=== PATIENT | female | born 1955 | race Caucasian/White ===

== ENCOUNTER 2025-01-23 05:27 | Observation (INO) ==
--- NOTE | 2024-12-24 10:44 | PAT Medication Instructions ---
Medication Instructions Date of Service December 24, 2024 Home Medications Lactobacil.acidophilus-Bifido.animalis 5 billion cell sprinkle capsule (Probiotic) 1 cap PO DAILY atorvastatin 40 mg tablet 40 mg PO QAM biotin 1,000 mcg chewable tablet 1,000 mcg PO DAILY buspirone 5 mg tablet 5 mg PO BID cholecalciferol (vitamin D3) 25 mcg (1,000 unit) capsule (Vitamin D3) 25 mcg PO DAILY cyanocobalamin (vitamin B-12) 2,500 mcg tablet 2,500 mcg PO DAILY famotidine 20 mg tablet 20 mg PO HS metformin 500 mg tablet 500 mg PO BID ltosiafzcovt-ujsqsuqx-erhgnye-folic acid 400 mcg-vit K1 20 mcg tablet 1 tab PO DAILY DO NOT take the morning of surgery Lactobacil.acidophilus-Bifido.animalis 5 billion cell sprinkle capsule (Probiotic) 1 cap PO DAILY biotin 1,000 mcg chewable tablet 1,000 mcg PO DAILY cholecalciferol (vitamin D3) 25 mcg (1,000 unit) capsule (Vitamin D3) 25 mcg PO DAILY cyanocobalamin (vitamin B-12) 2,500 mcg tablet 2,500 mcg PO DAILY metformin 500 mg tablet 500 mg PO BID ztfvtznkdtsc-cauzoine-ksmzgbd-folic acid 400 mcg-vit K1 20 mcg tablet 1 tab PO DAILY Take morning of surgery With a small sip of water, OTHERWISE NOTHING TO EAT OR DRINK AFTER MIDNIGHT: atorvastatin 40 mg tablet 40 mg PO QAM buspirone 5 mg tablet 5 mg PO BID Take evening before surgery buspirone 5 mg tablet 5 mg PO BID famotidine 20 mg tablet 20 mg PO HS metformin 500 mg tablet 500 mg PO BID Other Notes If you have any questions please call us at [phone] or [phone] or [phone] or [phone]
--- NOTE | 2024-12-26 10:31 | Anesthesiology Consultation ---
Date of Service December 26, 2024 Assessment & Plan (1) Encounter for pre-operative examination: - Check BSG DOS - Infectious disease screening: Per assessment on 12/26/24- No known recent infectious disease contacts or current infectious disease symptoms. - Outpatient joint assessment: Pt currently scheduled for inpatient pathway. If surgeon requests review for outpatient joint pathway, patient is not recommended candidate for outpatient joint program from anesthesia standpoint based on available information. - Cardiology visit (10/03/24): "SVT.. 7 beats on zio patch. Significant artifact. Short-lived.. Joint decision made to hold off on medication at this time.. Encouraged patient to stay hydrated.. Decrease caffeine intake and stress levels.. Encouraged to reach out with new/worsening symptoms in future.. Atypical chest pain.. DSE negative for ischemia. Noncardiac in nature. Continue with endoscopy as planned.. If patient would need ischemic work-up in the fu ture, recommend alternative testing with nuclear stress test as DSE not well tolerated with adverse side effects and ectopy.. Follow up PRN or if symptoms worsen/fail to improve." - Patient acceptable risk for surgery pending surgeon-ordered PCP preop evaluation ([facility] [place], appt 01/09). Chart Review Chart Review: Patient seen in Pre Admission Testing Teaching & Discussion Pre-Anesthesia Teaching/Discussion Notes: Instructed NPO after midnight before surgery,except medications with 15 cc of water. Medication instructions provided according to the PAT guidelines. History Surgery Operation Date: 01/23/25 07:15 Proposed Procedures p Left Total Knee Arthroplasty - Ham Sullivan MD Height/Weight Height: 5 ft 10 in Weight: 127 kg Allergies Allergy/AdvReac Type Severity Reaction Status Date / Time codeine AdvReac Intermediate "[place] like Verified 12/26/24 08:56 was passing out" Medications Home Medications Medication Instructions Recorded Confirmed Last Taken Lactobacil.acidophilus-Bifido.animalis 1 cap PO DAILY 12/24/24 12/24/24 Unknown 5 billion cell sprinkle capsule (Probiotic) atorvastatin 40 mg tablet 40 mg PO QAM 12/24/24 12/24/24 Unknown biotin 1,000 mcg chewable tablet 1,000 mcg PO DAILY 12/24/24 12/24/24 Unknown buspirone 5 mg tablet 5 mg PO BID 12/24/24 12/24/24 Unknown cholecalciferol (vitamin D3) 25 25 mcg PO DAILY 12/24/24 12/24/24 Unknown mcg (1,000 unit) capsule (Vitamin D3) cyanocobalamin (vitamin B-12) 2,500 mcg PO DAILY 12/24/24 12/24/24 Unknown 2,500 mcg tablet famotidine 20 mg tablet 20 mg PO HS 12/24/24 12/24/24 Unknown metformin 500 mg tablet 500 mg PO BID 12/24/24 12/24/24 Unknown oqqslvsbchxn-uzdduzyq-nxvvmvd-folic 1 tab PO DAILY 12/24/24 12/24/24 Unknown acid 400 mcg-vit K1 20 mcg tablet Past Medical History Medical History Anxiety GERD (gastroesophageal reflux disease) Hiatal hernia Hyperlipidemia Prediabetes Taking Metformin Exercise / Class Metabolic Activity II 4-5 Yardwork/Stairs/Walk up hill (one FS: No CP, no SOB) Past Family History Family History Sister History of postoperative nausea and vomiting Father Diabetes Past Surgical History Surgical History History of arthroscopy right knee History of cholecystectomy History of colonoscopy History of esophagogastroduodenoscopy (EGD) History of hysterectomy History of postoperative nausea and vomiting History of tonsillectomy History of tooth extraction Hx of foot surgery B/L bone spurs Past Anesthesia History No Hx of Anesthesia Complications and No Family Hx of Anesthesia Complications History of PONV History of PONV and Hx of Motion Sickness Social History Smoking Status: Never smoker Do You Dip or Chew Tobacco: No Hx Alcohol Use: No Hx Substance Use: No substance use type: does not use Review of Systems Patient denies chest pain, shortness of breath, dyspnea on exertion, fever, chills, cough, wheezing, palpitations. Physical Exam Vital Signs BP 125/72 P 62 TEMP 98.2 SP02 96%RA RESP 18 Physical Full cervical extension range of motion. Full TMJ range of motion. TMD > 3.5 finger breaths Mallampati Score I Dentition: several missing (molars), upper partial Lungs: clear throughout to auscultation Cardiac: regular rate and rhythm, no murmurs noted Spine: normal Carotid arteries: negative bruit Extremities: no LLE edema, right ankle brace on Lab Results Anesthesia Preop Results Results Anesthesia Widget: WBC 8.97 K/ul (4.8-10.8) 12/26/24 Hgb 13.4 g/dl (12.0-16.0) 12/26/24 Hct 40.6 % (37.0-47.0) 12/26/24 Plt 351 K/uL (130-400) 12/26/24 Na 141 mmol/L (136-145) 12/26/24 K 4.2 mmol/L (3.5-5.1) 12/26/24 Cl 105 mmol/L (98-107) 12/26/24 CO2 30 mmol/L (21-32) 12/26/24 BUN 18 mg/dl (6-23) 12/26/24 Creat 0.62 mg/dl (0.6-1.2) 12/26/24 Glucose Level 93 mg/dl (70-99(Fasting)) 12/26/24 PT 11.0 Seconds (9.0-12.0) 12/26/24 PTT 28 Seconds (21-31) 12/26/24 INR 1.0 (0.9-1.1) 12/26/24 HA1c 5.9 % (4.5-5.6) H 12/26/24 Urine Color Dark Yellow 12/26/24 Urine Appearance Clear (Clear) 12/26/24 Urine pH 7.0 (4.5-7.5) 12/26/24 Urine Specific [place] 1.015 (1.000-1.030) 12/26/24 Urine Protein Negative (Negative) 12/26/24 Urine Glucose (UA) Negative (Negative) 12/26/24 Urine Ketones Trace (Negative) H 12/26/24 Urine Blood Negative (Negative) 12/26/24 Urine Nitrite Negative (Negative) 12/26/24 Urine Bilirubin Negative (Negative) 12/26/24 Urine Urobilinogen Negative (Negative) 12/26/24 Urine Leukocyte Esterase 1+ (Negative) H 12/26/24 Urine WBC (Auto) 0-5 /hpf (0-5) 12/26/24 Urine RBC (Auto) 0-2 /hpf (0-2) 12/26/24 Urine Hyaline Casts (Auto) 0-2 /lpf (0-2) 12/26/24 Urine Epithelial Cells (Auto) 0-2 /hpf (0-2) 12/26/24 Urine Bacteria (Auto) None Seen (None Seen) 12/26/24 Blood Type O Positive 12/26/24 Antibody Screen NEGATIVE 12/26/24 Testing Electrocardiogram Date: 08/16/24 NSR at 64bpm. LAFB. LVH with secondary QRS widening. Chest X-Ray Date: 12/26/24 Findings: + NAD Stress Test Date: 09/27/24 Type: DSE Stress echo negative for inducible ischemia. Atypical central chest pain 12/03 was noted with stress which resolved in recovery. No significant ST changes noted during stress. Irregular rhythm and ectopy noted during medication infusion with heart rate fluctuation. LVEF 55-59%. Mildly enlarged proximal ascending thoracic aorta, 4.0 cm in diameter. Per DSE, recommend different stress test in the future when necessary as patient did not tolerate dobutamine well noting nausea, chest pain, and irregular heart rhythm. 14 day night monitor Date: 09/06/24-09/20/24 Preliminary report:Minimum HR 55 bpm. Maximum HR 106 bpm average HR 72 bpm. Predominant underlying rhythm was sinus rhythm. First-degree AV block was present. 1 run of SVT. Isolated SVE's/SVE couplets/SVE triplets/isolated VE's were rare. No A-fib.
--- NOTE | 2025-01-21 20:46 | History & Physical Report ---
Date of Service January 21, 2025 Assessment & Plan (1) Bilateral primary osteoarthritis of knee: Plan: Current plan is to proceed with a left knee replacement on the worst knee. May require stemmed implant and or constrained polyethylene implant for stability purposes due to chronic MCL laxity and bone loss lateral compartment. History of Present Illness Chief Complaint: Chronic left knee pain Primary Care Provider: NO PCP 69-year-old female with chronic bilateral knee pain with severe end-stage osteoarthritis presents for left knee replacement Patient denies headaches, sweats, fevers, chills, double vision, blurred vision, cough, sore throat, dysphagia, chest pain, sob at rest has some running short distance, wheezing, n/v/d/c, numbness, tingling, fatigue, urinary symptoms. ROS positive for acid reflux hiatal hernia, severe nausea and vomiting with anesthesia and family member having problem with anesthesia Allergies Allergy/AdvReac Type Severity Reaction Status Date / Time codeine AdvReac Intermediate "[place] like Verified 12/26/24 08:56 was passing out" Home Medications Medication Instructions Recorded Confirmed Type Lactobacil.acidophilus-Bifido.animalis 1 cap PO DAILY 12/24/24 12/24/24 History 5 billion cell sprinkle capsule (Probiotic) atorvastatin 40 mg tablet 40 mg PO QAM 12/24/24 12/24/24 History biotin 1,000 mcg chewable tablet 1,000 mcg PO DAILY 12/24/24 12/24/24 History buspirone 5 mg tablet 5 mg PO BID 12/24/24 12/24/24 History cholecalciferol (vitamin D3) 25 25 mcg PO DAILY 12/24/24 12/24/24 History mcg (1,000 unit) capsule (Vitamin D3) cyanocobalamin (vitamin B-12) 2,500 mcg PO DAILY 12/24/24 12/24/24 History 2,500 mcg tablet famotidine 20 mg tablet 20 mg PO HS 12/24/24 12/24/24 History metformin 500 mg tablet 500 mg PO BID 12/24/24 12/24/24 History yabkeurtjjgy-hsmkgadn-zejswjh-folic 1 tab PO DAILY 12/24/24 12/24/24 History acid 400 mcg-vit K1 20 mcg tablet Past Med/Surg History Problem List (Updated 01/21/25 @ 20:45 by Ham Sullivan MD) Bilateral primary osteoarthritis of knee Encounter for pre-operative examination Medical History GERD (gastroesophageal reflux disease) Hiatal hernia Prediabetes Taking Metformin Anxiety Hyperlipidemia Surgical History History of postoperative nausea and vomiting History of arthroscopy right knee Hx of foot surgery B/L bone spurs History of cholecystectomy History of colonoscopy History of esophagogastroduodenoscopy (EGD) History of hysterectomy History of tooth extraction History of tonsillectomy Family History Sister History of postoperative nausea and vomiting Father Diabetes Social History Smoking Status: Never smoker Second Hand Exposure: No; Do You Dip or Chew Tobacco: No; Tobacco Cessation Education Requested by Patient: No Hx Alcohol Use: No Hx Substance Use: No Preferred Language: Wolof Communication Ability: Effective Admission Liaison Required: No Beliefs That Will Affect Care: None Current Living Situation: Spouse Other Information That Helps Us Care for You: No Feels Safe at Home: Yes Safety Concerns: Feels Safe At This Time Assistive Devices: Glasses Review of Systems All systems reviewed & are unremarkable except as noted in HPI & below Physical Exam Constitutional: WD/WN, vitals as above Respiratory: normal respiratory effort; no respiratory distress Cardiovascular: Rate/Rhythm: regular rate and regular rhythm Musculoskeletal: Knee exam with bilateral valgus knees left greater than right with lateral compartment crepitation lateral joint line tenderness. Patient has pain with Cornelia tests directly either medial or lateral bilaterally and has some moderate laxity of the left knee with valgus stress and mild on the right with valgus stress. Both knees are painful with range of motion 0 to 120 degrees on the right and 0-1 15 on the left. Distal circulation sensorimotor exam otherwise intact and normal. Skin: no rashes, warm and dry Neurologic: normal touch/pain/proprioception Psychiatric: A+Ox3, euthymic affect Results & Data Diagnostic Findings Bilateral knees are valgus [id number] in the lateral compartment with hypoplastic lateral femoral condyles with bone loss over time. Left knee has larger osteophytes subchondral sclerosis hypoplastic lateral femoral condyle bone loss than noted on on the right.
[2025-01-23] MEDS: LR 500ML BOLUS, THEN 15ML/HR IV SCH (06:18)
[2025-01-23] MEDS: CeleBREX 200 MG CAP PO SCH (06:18)
[2025-01-23] MEDS: ACETAMINOPHEN 500 MG TAB PO SCH ×2 (06:18→14:01)
[2025-01-23] MEDS: FAMOTIDINE 20 MG TAB PO SCH ×2 (06:19→21:20)
[2025-01-23] MEDS: METOCLOPRAMIDE HCL 10 MG TABLET PO SCH (06:19)
[2025-01-23] MEDS: GABAPENTIN 300 MG CAP PO SCH (06:19)
[2025-01-23] MEDS: LR 60ML/HR IV SCH (06:19)
[2025-01-23] MEDS ORDERED: BUPIVACAINE 0.25% PF 30 ML VIAL ONE (06:21)
[2025-01-23] MEDS ORDERED: BUPIVACAINE 0.5 % 5 MG/1 ML PF 10ML VIAL ONE (06:21)
[2025-01-23] MEDS ORDERED: PROPOFOL IV EMULSION 10 MG/ML 100 ML VIAL IV ONE ×2 (06:41→08:59)
[2025-01-23] MEDS ORDERED: MIDAZOLAM HCL 1 MG/ML 2ML VIAL ONE (06:41)
[2025-01-23] MEDS ORDERED: ATROPINE SULFATE 0.1 MG/ML 10ML SYR IV PRN (06:47)
[2025-01-23] MEDS ORDERED: ONDANSETRON INJ 2 MG/ML 2 ML VIAL IV PRN (06:47)
[2025-01-23] MEDS ORDERED: ePHEDrine sulfate 50 MG/ML AMP IV PRN (06:47)
[2025-01-23] MEDS ORDERED: fentaNYL citrate PF 100 MCG/2 ML VIAL IV PRN (06:47)
[2025-01-23] MEDS ORDERED: PROMETHAZINE HCL 6.25 MG in SODIUM CHLORIDE 0.9% 50 ML IV PRN (06:47)
--- OUTSIDE RECORDS SUMMARY | 2025-01-23 06:51 | External Medical Summary | Summary of Care ---
Author Name Unknown Organization [facility] Address [address] [place] [facility] [place] [address] Phone [phone] Care Team Providers Care Lvn Name Role Phone Maclolm Osman DO Primary Care Provider [phone] Reason for Visit * Reason Onset Date Comments Test Results 01/11/2025 Encounter Details Date Type Department Care Team (Late st Contact Info) Description 01/11/[facility] [address] [place] [address] Malcolm Osman DO [address] [place] [address] Test Results Allergies Active Allergy Reactions Criticality Noted Date Comments No Known Drug Allergy 06/11/2003 documented as of this encounter (statuses as of 01/14/2025) Medications Vitamin D3 50 MCG (1999) Oral Capsule Take 1 Capsule by mouth in the morning. Active Biotin 1000 MCG Oral Tablet Take 1 Tablet by mouth in the morning. Active Multivitamin-Mine rals Oral Tablet Take 2 Tablets by mouth in the morning. Active Fluticasone Propionate 50 MCG/ACT Nasal Suspension (Flonase)Indicati ons:Chronic pansinusitis Administer 2 Sprays into each nostril in the morning. Active busPIRone HCl 5 MG Oral Tablet (Buspar) Take 1 Tablet by mouth in the morning and 1 Tablet before bedtime. 180 Tablet 1 11/28/2024 11:55 AM EST 4 Active Famotidine 20 MG Oral Tablet (Pepcid)Indicatio ns:Gastroesophage al reflux disease without esophagitis Take 1 Tablet by mouth in the morning and 1 Tablet before bedtime. 5 Active documented as of this encounter (statuses as of 01/14/2025) Active Problems Problem Noted Date Diagnosed Date Primary osteoarthritis of left knee 01/09/2025 Assessment & Plan (01/11/2025 12:58 PM EDT): Follow with orthopedic Degeneration of intervertebr al disc of lumbar region with discogenic back pain 11/20/2024 Assessment & Plan (01/11/2025 12:58 PM EDT): Stable Modified home therapeutic exercise Avoid strenuous activities, no heavy lifting Warm compresses four times daily affected area Caregiver burden 11/20/2024 History of hyperplastic polyp of colon 4 Overview (09/05/2024): 2010 Colonoscopy Chronic pansinusitis 08/16/2024 Chronic idiopathic constipation 08/16/2024 Primary osteoarthritis of both knees 08/16/2024 Bilateral carpal tunnel syndrome 08/16/2024 Class 3 severe obesity due t o excess calories with serious comorbidity and body mass index (BMI) of 40.0 to 44.9 in adult 08/16/2024 Diverticulosis of large intestine without hemorr nathalia 08/16/2024 Positive colorectal cancer screening using Colog uard test 08/16/2024 Prediabetes 11/07/2023 Overview: Per Prediabetes protocol Assessment & Plan (01/11/2025 12:58 PM EDT): Stable Continue present medication Metformin ER 500 mg 2 tabs once daily Continue reduced caloric intake diabetic diet and exercise Foot pain 12/15/2015 Other seborrheic keratosis 03/16/2013 AK (actinic keratosis) 03/16/2013 Zhu angioma 03/16/2013 Personal history of malignant neoplasm of skin 0 03/16/2011 Overview (03/16/2011): History pigmented Basal Cell Carcinoma R upper chest/173.5 Special screening for osteoporosis 07/27/2007 Overview (07/27/2007): 12/28. Repeat in 5 year Abnormal thyroid function test 05/15/2007 Overview (05/15/2007): [place] TSH. Positive antibodies 05/02 Esophageal reflux 02/15/2007 Overview (03/19/2009): Ppi prn Assessment & Plan (01/11/2025 12:58 PM EDT): Stable Continue present medication [place] high-fiber diet Orders: Famotidine 20 MG Oral Tablet (Pepcid); Take 1 Tablet by mouth in the morning and 1 Tablet before bedtime. Dyslipidemia, goal LDL below 70 04/27/2006 Impaired fasting glucose 04/27/2006 Menopause 04/25/2006 Overview (04/25/2006): DEXA normal 08/29, recheck 5 years LOC PRIM OSTEOART-SHLDER 10/19/2004 Overview (10/19/2004): also of cspine FAM HX-DIABETES MELLITUS(aka FAMILY) 09/07/2004 FAM HX-LYMPH NEOPLAS NEC(aka FAMILY) 09/07/2004 FAM HX-NEUROLOG DIS NEC(aka FAMILY) 09/07/2004 Overview (09/07/2004): dementia documented as of this encounter (statuses as of 01/14/2025) Resolved Problems Problem Noted Date Diagnosed Date Resolved Date Benign neoplasm of colon 03/15/201107/2024 Overview (09/05/2024): 2010 Colonoscopy hyperplastic 03/06. Repeat 10 yr Body mass index (BMI) of 40.0-44.9 in adult 12/23/2009 09/10/2024 Overview (01/06/2016): Per Obesity Taxonomy ICD-10 update of inactive term BMI OVER 40 10/19/2004 12/23/2009 Overview (12/23/2009): Per Obesity Taxonomy Actinic keratosis 10/19/2004 07/28/2007 Uterine leiomyoma 07/23/2003 09/07/2004 Chronic rhinitis 09/07/2004 Other disorder of menstruati on and other abnormal bleeding from female genital tract 09/07/2004 documented as of this encounter (statuses as of 01/14/2025) Immunizations Name Administration Dates Next Due COVID-19 mRNA, LNP-s, No Pre serve, 2-Dose Series (Pfizer) 12/03/2020,11/05/2020 Pneumococcal Conjugate Vacci ne, 20-valent ([id number]) 10/27/2023 Rabies Vaccine (Rabavert) 05/18/2016,,05/07/2016,2015 Seasonal Influenza, High Dos e, Trivalent, PF, IM (Fluzone HD) 08/16/2024 Seasonal Influenza, Quadriva lent Hd (Fluzone Hd) 10/27/2023 TDAP (age 10 and older)(Boostrix) 05/02/2016 TDAP, Age 7 and older, IM (Adacel) 07/28/2007 Zoster Vaccine Recombinant (Shingrix) 11/20/2024 documented as of this encounter Social History Tobacco Use Types Packs/Day Years Used Date Smoking Tobacco: Never Passive Smoke Exposure: Never Smokeless Tobacco: Never Alcohol Use Standard Drinks/Week Comments No 0 (1 standard drink = 0.6 oz pur e alcohol) PHQ-2 Answer Date Recorded PHQ Adult Total Score 1 11/20/2024 Hunger Vital Sign Answer Date Recorded Within the past 12 months, y ou worried that your food would run out before you got the money to buy more. Never true 08/14/20 24 Within the past 12 months, t he food you bought just didn't last and you didn't have money to get more. Never true 08/14/2024 Childcare Answer Date Recorded Do you feel overwhelmed with taking care of a child, family member or friend? No 08/14/2024 Does your family need help f inding childcare? (Household - for ages 0-17 years) Not on file 08/14/2024 Clothing Answer Date Recorded Have you been unable to get clothing when it was really needed? No 08/14/2024 Is your family able to get c lothes or diapers when needed? (Household - for ages 0-17 years) Not on file 08/14/2024 Personal Safety Answer Date Recorded Do you feel unsafe or have concerns for your saf ety? No 08/14/2024 Do you have concerns for you r family's safety? (Household - for ages 0-17 years) Not on file 08/14/2024 Utilities Answer Date Recorded Do you have trouble paying y our heating, water, or electric bill? No 08/14/2024 Is your family able to pay t he heat, water, or electric bill? (Household - for ages 0-17 years) Not on file 08/14/2024 Does your family have access to good internet? (Household - for ages 0-17 years) Not on file 08/14/2024 Employment Status Answer Date Recorded Are you unemployed or without regular income? No 08/14/2024 Does the household have a [facility] source of income? (Household - for ages 0-17 years) Not on file 08/14/2024 Social Connections Answer Date Recorded How often do you feel lonely or isolated from th ose around you? Never 08/14/2024 Financial Resource Strain Answer Date R ecorded Do you have any trouble payi ng for your medications, or do you think you might in the future? No 08/14/2024 Does your family have troubl e paying for medicine? (Household - for ages 0-17 years) Not on file 08/14/2024 Transportation Needs Answer Date Record ed Do you have trouble getting a ride to medical visits or work? (Adult - for ages 18 years and over) Not on file 08/14/2024 Does your family have a hard time getting a ride to doctors visits? (Household - for ages 0-17 years) Not on file 08/14/2024 Has lack of transportation k ept you from medical appointments, meetings, work, or from getting things needed for daily living? Check all that apply. No 08/14/2024 Do you (or your family) have trouble finding or paying for a ride (transportation)? (Household - for ages 0-17 years) Not on file 08/14/2024 Housing Stability Answer Date Recorded Do you currently live in a s helter or have no steady place to sleep at night? No 08/14/2024 Do you think you are at risk of becoming homeless? (Adult - for ages 18 years and over) Not on file 08/14/2024 Does your family worry about paying for your home or becoming homeless? (Household - for ages 0-17 years) Not on file 1 10/14/2023 Are you homeless or worried that you might be in the future? No 08/14/2024 Are you (or your family) kashif eless or worried that you might be in the future? (Household - for ages 0-17 years) Not on file Food Insecurity Answer Date Recorded Do you need food for this week? No 08/14/2024 Are you able to get enough f ood for your family? (Household - for ages 0-17 years) Not on file 08/14/2024 Does your family need food t his week? (Household - for ages 0-17 years) Not on file 08/14/2024 Do you always have enough fo od for your family? (Household - for ages 0-17 years) Not on file 08/14/2024 Food Insecurity Answer Date Recorded Within the past 12 months, y ou worried that your food would run out before you got the money to buy more. Never true 08/14/20 24 Within the past 12 months, t he food you bought just didn't last and you didn't have money to get more. Never true 08/14/2024 Do you need food for this week? No 08/14/2024 Comments No Sex and Gender Information Value Date Recorded Sex Assigned at Female 05/07/2022 7:39 PM EDT Legal Sex Female 5:53 AM EST Gender Identity Female 05/07/2022 7:39 PM EDT Sexual Orientation Straight 05/07/2022 7: 39 PM EDT Occupation Industry Job Start Date Job End Date teacher Not on file Not on file Not on file documented as of this encounter Miscellaneous Notes * Telephone Encounter - Lakesha Arreguin LPN - 01/14/2025 8:48 AM EDT Faxed to [facility] and [facility]. * Telephone Encounter - Malcolm Osman DO - 01/11/2025 5:48 PM EDT Preop lab studies are normal. Please fax to [facility] orthopedic documented in this encounter Plan of Treatment Upcoming Encounters Date Type Department Care Team (Late st Contact Info) Description 02/20/2025 11:20 AM EDT Office Visit Family Practice [address] [place] [address] [address] [place] [address] Malcolm Osman DO [address] [place] [phone] 03/11/2025 1:00 PM EDT Nutrition Services Nutrition Services [address] [place] [address] [address] [facility] [place], [place] [id number] Molly Ham, KAINN 30 [facility] 11 [place] [address] 04/22/2025 9:20 AM EDT Office Visit Dermatology, [facility] [address] [facility] [address] [place] [address] Janae Joseph PA-C 27 [place] [phone] 06/17/2025 4:15 PM EDT Appointment Radiology, [address] [place] [phone] Health Maintenance Due Date Last Done Comments Sigmoidoscopy 2002 Fecal Occult Blood Test 08/11/2008 08/11/2007, 09/17 Adult Wellness Visit 2023 COVID-19 Vaccine (3 - 2023- season) 2024 12/03/2020, 11/05/2020 Zoster Vaccines (2 of 2) 01/15/2025 11/20/2024 Mammogram 06/12/2025 06/12/2024, 05/0 04/2023, 12/07/2021, Additional history exists HbA1c 08/29/2025 08/29/2024, 02/0 09/2023, 06/20/2012, Additional history exists Depression Screening 11/20/2025 11/20/2024 DTap/Tdap Vaccines (3 - Td or Tdap) 05/02/2026 05/02/2016, 07/28/2007 Cologuard 11/17/2026 11/17/2023, 10/27, 11/07/2023 Lipid Panel 08/29/2029 08/29/2024, 020 09/2023, 12/14/2022, Additional history exists DXA Scan 11/18/2033 11/18/2023 Colonoscopy 01/09/2034 01/10/2024, 12/25, 03/04/2011 Colorectal Cancer Screening 01/09/2034 Hepatitis C Screening Completed 05/15/2007 Pneumococcal Vaccine: 50+ Years Completed 10/27/2023 Influenza Vaccine (FLU shot) Completed 08/16/2024, 10/27/2023 HPV (Gardasil) Vaccine Aged Out No lo nger eligible based on patient's age to complete this topic Hepatitis B Vaccine Aged Out No longe r eligible based on patient's age to complete this topic MENINGOCOCCAL (MENACTRA/MENVEO) Aged Out No longer eligible based on patient's age to complete this topic Meningitis B Vaccine (Bexsero/Trumemba) Aged Out No longer eligible based on patient's age to complete this topic documented as of this encounter Medical Devices Not on filedocumented as of this encounter Advance Directives Documents on File Type Date Recorded Patient Diet Kitchen Cook Expl anation POLST 08/17/2024 signed on 08/16 Care Teams Lvn Relationship Specialty Start Date End Date Malcolm Osman DO [address] [place] [address] PCP - General Family Medicine 08/16/24 documented as of this encounter
--- OUTSIDE RECORDS SUMMARY | 2025-01-23 06:51 | External Medical Summary | Summary of Care ---
Author Name Unknown Organization [facility] [address] [facility] [address] Phone [phone] Care Team Providers Care Fire Extinguisher Repairer Name Role Phone Malcolm Osman DO Primary Care Provider [phone] Reason for Visit * Reason Onset Date Comments Other 01/09/2025 Encounter Details Date Type Department Care Team (Late st Contact Info) Description 01/09/2025 Telephone Family Practice 65 [facility] [place] [address] [place] [address] Malcolm Osman DO [address] [place] [address] Other Allergies Active Allergy Reactions Criticality Noted Date Comments No Known Drug Allergy 06/11/2003 documented as of this encounter (statuses as of 01/11/2025) Medications Vitamin D3 50 MCG (1999) Oral [...] as of this encounter (statuses as of 01/11/2025) Active Problems Problem Noted Date Diagnosed Date [...] 12:58 PM EDT): Stable Continue present medication [place] high-fiber diet Orders: Famotidine 20 MG Oral [...] as of this encounter (statuses as of 01/11/2025) Resolved Problems Problem Noted Date Diagnosed Date [...] as of this encounter (statuses as of 01/11/2025) Immunizations Name Administration Dates Next Due COVID-19 mRNA, LNP-s, No Pre serve, 2-Dose Series (Pfizer) 12/03/2020,11/05/2020 Pneumococcal Conjugate Vacci ne, 20-valent ([id number]) 10/27/2023 Rabies Vaccine (Rabavert) 05/18/2016,,05/07/2016,2015 Seasonal Influenza, [...] No 08/14/2024 Does the household have a [facility] health systemr source of income? (Household - for ages [...] encounter Miscellaneous Notes * Telephone Encounter - Diana Oneill CCMA - 01/11/2025 2:37 PM EDT Clearance faxed to [facility] and [facility] for preop * Telephone Encounter - Malcolm Omsan DO - 01/11/2025 12:59 PM EDT Please see note and fax per request * Telephone Encounter - Diana Oneill CCMA - 01/09/2025 2:11 PM EDT Please complete note so it can be faxed to [facility] and [facility] for her surgery documented in this encounter Plan of Treatment Upcoming Encounters Date Type Department Care Team (Late st Contact Info) Description 02/20/2025 11:20 AM EDT Office Visit Family Practice 65 [facility] [address] [place] [address] Malcolm Osman DO [address] [place] [address] 03/11/2025 1:00 PM EDT Nutrition Services Nutrition Services 65 [facility] [address] [place] [address] Molly Ham, KAINN 30 [facility] [place] 11 [place] [address] 04/22/2025 9:20 AM EDT Office Visit Dermatology, [facility] Parker [address] [place] [address] [place] [address] Janae Joseph PA-C [address] [place] [address] 06/17/2025 4:15 PM EDT Appointment Radiology, [facility] [address] [place] [phone] Health Maintenance Due Date Last Done Comments Sigmoidoscopy 2002 Fecal Occult Blood Test 08/11/2008 08/11/2007, 09/17 Adult Wellness Visit 2023 COVID-19 Vaccine (3 - season) 2024 12/03/2020, 11/05/2020 Zoster Vaccines (2 of 2) 01/15/2025 11/20/2024 Mammogram 06/12/2025 06/12/2024, 05/0 04/2023, 12/07/2021, Additional history exists HbA1c 08/29/2025 08/29/2024, 020 09/2023, 06/20/2012, Additional history exists Depression Screening [...] Documents on File Type Date Recorded Patient Sawmill Manager Expl anation POLST 08/17/2024 signed on 08/16 Care Teams Fire Extinguisher Repairer Relationship Specialty Start Date End Date Malcolm Osman DO [address] [place] [address] PCP - General Family Medicine 08/16/24 documented as of this encounter
--- OUTSIDE RECORDS SUMMARY | 2025-01-23 06:51 | External Medical Summary | Summary of Care ---
Author Name Unknown Organization [facility] Address [address] [place] [facility] [place] [address] Phone [phone] Care Team Providers Care Respiratory Medicine Physician Name Role Phone Malcolm Osman DO Primary Care Provider [phone] Reason for Visit * Reason Onset Date Comments Test Results 01/11/2025 Encounter Details Date Type Department Care Team (Late st Contact Info) Description 01/11/20[facility] [address] [place] [address] Malcolm Osman DO [address] [place] [address] Test Results Allergies Active Allergy [...] 12:58 PM EDT): Stable Continue present medication [place] high-fiber diet Orders: Famotidine 20 MG Oral [...] (Pfizer) 12/03/2020,11/05/2020 Pneumococcal Conjugate Vacci ne, 20-valent ([id number]) 10/27/2023 Rabies Vaccine (Rabavert) 05/18/2016,,05/07/2016,2015 Seasonal Influenza, [...] No 08/14/2024 Does the household have a [facility] source of income? (Household - for [...] encounter Miscellaneous Notes * Telephone Encounter - Malcolm Osman DO - 01/11/2025 5:48 PM EDT Preop lab studies are normal. Please fax to [facility] orthopedic documented in this encounter Plan of Treatment Upcoming Encounters Date Type Department Care Team (Late st Contact Info) Description 02/20/2025 11:20 AM EDT Office Visit Family Practice 65 [facility] [address] [place] [place] [address] Malcolm Osman DO [address] [place] [address] 03/11/2025 1:00 PM EDT Nutrition Services Nutrition Services 65 [facility] [address] [place] [address] Molly Ham, RDN 30 [facility] 11 [place] [address] 04/22/2025 9:20 AM EDT Office Visit Dermatology, [facility] [address] [place] [address] [place] [address] Janae Joseph PA-C [address] [place] [address] 06/17/2025 4:15 PM EDT Appointment Radiology, [address] [place] [phone] Health Maintenance Due Date Last Done Comments Sigmoidoscopy 2002 Fecal Occult Blood Test 08/11/2008 08/11/2007, 09/17 Adult Wellness Visit 2023 COVID-19 Vaccine ( season) 2024 12/03/2020, 11/05/2020 Zoster Vaccines (2 [...] Documents on File Type Date Recorded Patient Wildlife Ecology Professor Expl anation POL 08/17/2024 signed on 08/16 Care Teams Respiratory Medicine Physician Relationship Specialty Start Date End Date Malcolm Osman DO [address] [place] [address] PCP - General Family Medicine 08/16/24 documented as of this encounter
--- OUTSIDE RECORDS SUMMARY | 2025-01-23 06:51 | External Medical Summary | Summary of Care ---
Author Name Unknown Organization [facility] Address [address] [place] [facility] [place] [place] [address] Phone [phone] Care Team Providers Care Coordinator Integrated Marketing Name Role Phone Malcolm Osman DO Primary Care Provider [phone] Reason for Visit * Reason Onset Date Comments Test Results 01/11/2025 Encounter Details Date Type Department Care Team (Late st Contact Info) Description 01/11/[facility] [address] [place] [address] Malcolm Osman DO [address] [place] [address] Test Results Allergies Active Allergy Reactions [...] 12:58 PM EDT): Stable Continue present medication [place] high-fiber diet Orders: Famotidine 20 MG Oral [...] (Pfizer) 12/03/2020,11/05/2020 Pneumococcal Conjugate Vacci ne, 20-valent ([id number]) 10/27/2023 Rabies Vaccine (Rabavert) 05/18/2016,,05/07/2016,2015 Seasonal Influenza, [...] No 08/14/2024 Does the household have a [facility] source [facility] income? (Household - for [...] lab studies are normal. Please fax to [facility] orthopedic documented in this encounter Plan of Treatment Upcoming Encounters Date Type Department Care Team (Late st Contact Info) Description 02/20/2025 11:20 AM EDT Office Visit Family Practice 65 [facility] [address] [place] [address] Malcolm Osman DO [address] [place] [address] 03/11/2025 1:00 PM EDT Nutrition Services Nutrition Services 65 [facility] [address] [place] [address] Molly Ham, RDN 30 [facility] 11 [place] [address] 04/22/2025 9:20 AM EDT Office Visit Dermatology, [facility] [address] [place] [address] [place] [address] Janae Joseph PA-C [address] [place] [address] 06/17/2025 4:15 PM EDT Appointment Radiology, [address] [place] [phone] Health Maintenance Due Date Last Done Comments [...] Documents on File Type Date Recorded Patient Fisher Swordfish Expl anation POL 08/17/2024 signed on 08/16 Care Teams Coordinator Integrated Marketing Relationship Specialty Start Date End Date Malcolm Osman DO [address] [place] [address] PCP - General Family Medicine 08/16/24 documented as of this encounter
--- OUTSIDE RECORDS SUMMARY | 2025-01-23 06:52 | External Medical Summary ---
Author Name Unknown Address Unknown Organization [id number]:[facility] [address] [facility] [place] [id number] Laboratory Report Ordering Provider Test Date Status DOUG GUILLERMO 01/09/2025 11:59:13 Final Observation Date Value Abnormality Reference (Units ) Status SYNC LEUKOCYTES IN BLOOD BY AUTOMATED COUNT 01/09/2025 11:59:13 10.06 4.00-10.80 (K/uL) Final Segs 01/09/2025 11:59:13 65.7 40.0-75.0 (%) Final Lymphs % 01/09/2025 11:59:13 23.6 18.0-42.0 (%) Final Monos 01/09/2025 11:59:13 8.5 1.0-11.0 (%) Final Eosinophils 01/09/2025 11:59:13 1.4 0.0-6.0 (%) Final Basos 01/09/2025 11:59:13 0.5 0.0-2.0 (%) Final Immature Granulocyte, Percent 01/09/2025 11:59:13 0.3 0.0-2.0 (%) Final Absolute Segs 01/09/2025 11:59:13 6.61 1.80-7.70 (K/uL) Final Lymphs, absolute 01/09/2025 11:59:13 2.37 1.00-4.80 (K/ul) Final Monos, Abs 01/09/2025 11:59:13 0.86 0.00-1.10 (K/uL) Final Eos, Abs 01/09/2025 11:59:13 0.14 0.00-0.70 (K/uL) Final Basos, Abs 01/09/2025 11:59:13 0.05 0.00-0.20 (K/uL) Final Immature Granulocytes, Number 01/09/2025 11:59:13 0.03 0.00-0.20 (K/uL) Final Performing Location LABORATORY [facility] - [facility] [place] [address]
--- OUTSIDE RECORDS SUMMARY | 2025-01-23 06:52 | External Medical Summary | Summary of Care ---
Author Name Unknown Organization [facility] Address [address] [place] [address] Phone [phone] Care Team Providers Care Devil Dog Name Role Phone Og Osmaninic Primary Care Provider [phone] Reason for Visit * Reason Comments Outpatient Testing Encounter Details Date Type Department Care Team (Late st Contact Info) Description 01/09/2025 12:00 PM EDT Laboratory Laboratory, [place] [address] [place] [phone] [place], [facility] [address] [place] [phone] Preop examination Allergies Active Allergy Reactions Criticality Noted Date Comments No Known Drug Allergy 06/11/2003 documented as of this encounter (statuses as of 01/09/2025) Medications Vitamin D3 50 MCG (1999 UT) Oral Capsule Take 1 Capsule by mouth in the morning. Active Biotin 1000 MCG Oral Tablet Take 1 Tablet by mouth in the morning. Active Multivitamin-Mine rals Oral Tablet Take 2 Tablets by mouth in the morning. Active Fluticasone Propionate 50 MCG/ACT Nasal Suspension (Flonase)Indicati ons:Chronic pansinusitis Administer 2 Sprays into each nostril in the morning. 4 Active busPIRone HCl 5 MG Oral Tablet [...] as of this encounter (statuses as of 01/09/2025) Active Problems Problem Noted Date Diagnosed Date Primary osteoarthritis of left knee 01/09/2025 Assessment & Plan (01/09/2025 11:55 AM EDT): Degeneration of intervertebr al disc of lumbar region with discogenic back pain 11/20/2024 Assessment & Plan (01/09/2025 11:55 AM EDT): Caregiver burden 11/20/2024 History of hyperplastic polyp [...] Overview: Per Prediabetes protocol Assessment & Plan (01/09/2025 11:55 AM EDT): Foot pain 12/15/2015 Other seborrheic keratosis 03/16/2013 [...] Esophageal reflux 02/15/2007 Overview (03/19/2009): Ppi prn Dyslipidemia, goal LDL below 70 04/27/2006 Impaired fasting glucose 04/27/2006 Menopause 04/25/2006 Overview (04/25/2006): DEXA normal 08/29, recheck 5 years LOC PRIM OSTEOART-SHLDER 10/19/2004 Overview (10/19/2004): also of cspine FAM HX-DIABETES MELLITUS(aka FAMILY) 09/07/2004 FAM HX-LYMPH NEOPLAS NEC(aka FAMILY) 09/07/2004 FAM HX-NEUROLOG DIS NEC(aka FAMILY) 09/07/2004 Overview (09/07/2004): dementia documented as of this encounter (statuses as of 01/09/2025) Resolved Problems Problem Noted Date Diagnosed Date [...] as of this encounter (statuses as of 01/09/2025) Immunizations Name Administration Dates Next Due COVID-19 mRNA, LNP-s, No Pre serve, 2-Dose Series (Pfizer) 12/03/2020,11/05/2020 Pneumococcal Conjugate Vacci ne, 20-valent ([id number]) 10/27/2023 Rabies Vaccine (Rabavert) 05/18/2016,,05/07/2016,2015 Seasonal Influenza, [...] No 08/14/2024 Does the household have a re lar source of income? (Household - for ages [...] on file documented as of this encounter Plan of Treatment Upcoming Encounters Date Type Department Care Team (Late st Contact Info) Description 02/20/2025 11:20 AM EDT Office Visit Family Practice [address] [place] [phone] Malcolm Osman DO [address] [place] [phone] 03/11/2025 1:00 PM EDT Nutrition Services Nutrition Services [address] [facility] ([place], [place]) [place] [address] Molly Ham RDN [address] [place] [address] [place] [phone] 04/22/2025 9:20 AM EDT Office Visit Dermatology, [facility] [address] [facility] [address] [place] [phone] Janae Joseph PA-C [address] [place] [id number] 06/17/2025 4:15 PM EDT Appointment Radiology, [facility] [address] [facility] [place] [phone] Pending Results Name Type Priority Associated Diagnoses Date /Time BASIC METABOLIC PANEL Lab Routine Preop examination 01/09/2025 11:59 AM EDT CBC WITH WBC DIFFERENTIAL Lab Routine Preop examination 01/09/2025 11:59 AM EDT CBC Lab Routine Preop examination 01/09/2025 11:59 AM EDT DIFFERENTIAL, AUTOMATED Lab Routine Preop examination 01/09/2025 11:59 AM EDT APTT Lab Routine Preop examination 01/09/2025 12:02 PM EDT Health Maintenance Due Date Last Done Comments Sigmoidoscopy 2002 Fecal Occult Blood Test 08/11/2008 08/11/2007, 09/17 Adult Wellness Visit 2023 COVID-19 Vaccine ( season) 2024 12/03/2020, 11/05/2020 Zoster Vaccines (2 of 2) 01/15/2025 11/20/2024 Mammogram 06/12/2025 06/12/2024, 05/0 04/2023, 12/07/2021, Additional history exists HbA1c 08/29/2025 08/29/2024, 02/09/2023, 06/20/2012, Additional history exists Depression Screening 11/20/2025 11/20/2024 DTap/Tdap Vaccines (3 - Td or Tdap) 05/02/2026 05/02/2016, 07/28/2007 Cologuard 11/17/2026 11/17/2023, 10/27, 11/07/2023 Lipid Panel 08/29/2029 08/29/2024, 02/0 09/2023, 12/14/2022, Additional history exists DXA Scan [...] Not on filedocumented as of this encounter Procedures Procedure Name Priority Date/Time Associated Diagnosis Comments PT INR Routine 01/09/2025 11:59 AM EDT Preop examination documented in this encounter Results * PT INR (01/09/2025 11:59 AM EDT) Prothrombin Time 14.2 11.6 - 15.2 seconds 01/09/2025 4:43 PM EDT [facility] INR 1.1 0.8 - 1.2 01/09/2025 4:43 PM EDT [facility] Blood Venous blood specimen / Unknown Venipuncture / Unknown 01/09/2025 11:59 AM EDT 01/09/2025 11:59 AM EDT Narrative LABORATORY [facility] - 01/09/2025 4:43 PM EDT Warfarin Therapy INR: 2.0-3.0 conventional anticoagulation INR: 2.5-3.5 high intensity anticoagulation us Malcolm Osman DO LAB BLOOD ORDERABLES Final R esult [facility] [address] [facility] [place] [phone] documented in this encounter Visit Diagnoses Diagnosis Preop examination- Primary Preoperative examination, unspecified Primary osteoarthritis of left knee Primary localized osteoarthrosis, lower leg Prediabetes Other abnormal glucose Degeneration of intervertebral disc of lumbar region with discogenic back pain Gastroesophageal reflux disease without esophagitis Esophageal reflux Preop examination Preoperative examination, unspecified documented in this encounter Advance Directives Documents on File Type Date Recorded Patient Dietist Expl anation POLST 08/17/2024 signed on 08/16 Care Teams Devil Dog Relationship Specialty Start Date End Date Malcolm Osman DO [address] [place] [phone] PCP - General Family Medicine 08/16/24 documented as of this encounter
--- OUTSIDE RECORDS SUMMARY | 2025-01-23 06:52 | External Medical Summary ---
Author Name Unknown Address Unknown Organization [id number]:[facility] [place] - [address] [place] [address] Laboratory Report Ordering Provider Test Date Status DOUG GUILLERMO 01/09/2025 12:02:54 Final Anticoagulation may affect t esting. Refer to [facility] Test Catalog for a list of effects. Observation Date Value Abnormality Reference (Units ) Status aPTT panel - Platelet poor plasma 01/09/2025 12:02:54 26 21-38 (seconds) Final Performing Location [facility] [place] - [address] [place] [address]
--- OUTSIDE RECORDS SUMMARY | 2025-01-23 06:52 | External Medical Summary ---
Author Name Unknown Address Unknown Organization [id number]:[facility] [place] - [address] [place] [address] Laboratory Report Ordering Provider Test Date Status DOUG GUILLERMO 01/09/2025 11:59:13 Final Observation Date Value Abnormality Reference (Units ) Status WBC, Total 01/09/2025 11:59:13 10.06 4.00-10.80 (K/uL) Final RBC 01/09/2025 11:59:13 4.67 3.85-5.15 (M/uL) Final Hemoglobin 01/09/2025 11:59:13 13.7 12.0-15.3 (g/dL) Final HCT 01/09/2025 11:59:13 43.3 36.0-45.2 (%) Final MCV 01/09/2025 11:59:13 92.7 81.5-97.5 (fL) Final MCH 01/09/2025 11:59:13 29.3 27.0-34.0 (pg) Final MCHC 01/09/2025 11:59:13 31.6 32.0-36.0 (g/dL) Final RDW 01/09/2025 11:59:13 14.1 11.5-15.5 (%) Final Platelets 01/09/2025 11:59:13 390 140-400 (K/uL) Final MPV 01/09/2025 11:59:13 10.5 6.6-11.1 (fL) Final Nucleated erythrocytes/100 leukocytes [Ratio] in Blood by Automated count 01/09/2025 11:59:13 0 <=0 (/100 WBCs) Final Performing Location [facility] [place] - [address] [place] [address]
--- OUTSIDE RECORDS SUMMARY | 2025-01-23 06:52 | External Medical Summary | Summary of Care ---
Author Name Unknown Organization [facility] Address [address] [place] [place] [place] [address] Phone [phone] Care Team Providers Care Stress Test Technician Name Role Phone Malcolm Osman DO Primary Care Provider [phone] Reason for Visit * Reason Comments pre-op exam Pt here for preop ex am - Having left knee replacement 01/23 @ [facility] Encounter Details Date Type Department Care Team (Latest Contact Info) Description 01/09/2025 11:20 AM EDT Office Visit Family Practice [address] [place] [address] [address] [place] [address] Malcolm Osman DO [address] [place] [address] Preop examination*; Primary osteoarthritis of left knee; Prediabetes; Degeneration of intervertebral disc of lumbar region with discogenic back pain; Gastroesophageal reflux disease without esophagitis Allergies Active Allergy Reactions Criticality Noted Date Comments No Known Drug Allergy 06/11/2003 documented as of this encounter (statuses as of 01/11/2025) Medications Vitamin D3 50 MCG (1999) Oral Capsule Take 1 Capsule by mouth in the morning. Active Biotin 1000 MCG Oral Tablet Take 1 Tablet by mouth in the morning. Active Multivitamin-Mi nerals Oral Tablet Take 2 Tablets by mouth in the morning. Active Fluticasone Propionate 50 MCG/ACT Nasal Suspension (Flonase)Indica tions:Chronic pansinusitis Administer 2 Sprays into each nostril in the morning. 08/16/20 24 Active busPIRone HCl 5 MG Oral Tablet (Buspar) Take 1 Tablet by mouth in the morning and 1 Tablet before bedtime. 180 Tablet 1 5 11:55 AM EST 08/30/20 24 Active Famotidine 20 MG Oral Tablet (Pepcid)Indicat ions:Gastroesop hageal reflux disease without esophagitis Take 1 Tablet by mouth in the morning and 1 Tablet before bedtime. 01/10/20 25 Active Famotidine 20 MG Oral Tablet (Pepcid)Indicat ions:Gastroesop hageal reflux disease without esophagitis Take 1 Tablet by mouth in the morning. 30 Tablet 2 4 6:16 PM EST 08/16/20 24 025 Discontinued Atorvastatin Calcium 40 MG Oral Tablet (Lipitor)Indica tions:Dyslipide bashir, goal LDL below 70 Take 1 Tablet by mouth in the morning. 90 Tablet 3 5 10:48 AM EST 11/20/19 25 025 Discontinued(A dverse reaction) documented as of this encounter (statuses as [...] 12:58 PM EDT): Stable Continue present medication [place] high-fiber diet Orders: Famotidine 20 MG Oral [...] mRNA, LNP-s, No Pre serve, 2-Dose Series (Faveous) 12/03/2020,11/05/2020 Pneumococcal Conjugate Vacci ne, 20-valent ([id number]) 10/27/2023 Rabies Vaccine (Rabavert) 05/18/2016,,05/07/2016,2015 Seasonal Influenza, [...] Passive Smoke Exposure: Never Smokeless Tobacco: Never Tobacco Cessation:Counseling Given: Yes Alcohol Use Standard Drinks/Week Comments No 0 [...] 08/14/2024 Does the household have a re gular source of income? (Household - for ages [...] on file documented as of this encounter Last Filed Vital Signs Vital Sign Reading Time Taken Comments Blood Pressure 100/68 01/09/2025 11:24 AM EDT Pulse 67 01/09/2025 11:24 AM EDT Temperature 36.6 °C (97.9 °F) 01/09/2025 1 1:24 AM EDT Respiratory Rate 16 01/09/2025 11:2 4 AM EDT Oxygen Saturation 97% 01/09/2025 11: 24 AM EDT Inhaled Oxygen Concentration - - Weight 124.4 kg (274 lb 4.8 oz) 025 11:24 AM EDT Height 177.8 cm (5' 10") 01/09/2025 11: 24 AM EDT Body Mass Index 39.36 01/09/2025 11:24 AM EDT documented in this encounter Progress Notes * Malcolm Osman DO - 01/09/2025 11:37 AM EDT Images from the original note were not included. Pre-Operative Medical Evaluation Procedure Information Type of Surgery: left knee replacment Referring Physician / Surgeon: Dr. Sullivan Date of procedure: 01/23/25 History of Present Illness: Patient is a 69-year-old female here for preop medical clearance for left knee replacement. Patientcomplains of chronic left knee pain with valgus deformity and increased difficulty walking. Patienthas a history of prediabetes, lumbar degenerative disc disease, and GERD. Patient denies fatigue fever chills or sweats. Patient denies polyuria polydipsia or blurred vision. Patient denies hypoglycemia Patient denies nasal congestion sore throat or earache. Patient denies cough or sputum. Patient denies chest pain shortness breath palpitations or edema. Patient complains of chronic intermittent heartburn stable on current medication therapy. Patient denies abdominal pain nausea vomiting diarrhea constipation. Patient denies urinary frequency dysuria urgency or hematuria. Patient complains ofchronic mid low back pain. Patient denies radiation of pain, muscle weakness or numbness. Patient denies headache dizziness weakness or numbness. Patient denies skin rash or lesions. Review systems otherwise negative Medical History Problem List: Degeneration of intervertebral disc of lumbar region with discogenic back pain (11/20/2024) Caregiver burden (11/20/2024) History of hyperplastic polyp of colon (09/05/2024) Chronic pansinusitis (08/16/2024) Chronic idiopathic constipation (08/16/2024) Primary osteoarthritis of both knees (08/16/2024) Bilateral carpal tunnel syndrome (08/16/2024) Class 3 severe obesity due to excess calories with serious comorbidity and body mass index (BMI) of 40.0 to 44.9 in adult ([facility]) (08/16/2024) Diverticulosis of large intestine without hemorrhage (08/16/2024) Positive colorectal cancer screening using Cologuard test (08/16/2024) Prediabetes (11/07/2023) Foot pain (12/15/2015) Other seborrheic keratosis (03/16/2013) AK (actinic keratosis) (03/16/2013) Zhu angioma (03/16/2013) Personal history of malignant neoplasm of skin (03/16/2011) Benign neoplasm of colon (03/15/2011) Body mass index (BMI) of 40.0-44.9 in adult ([facility]) (12/23/2009) Special screening for osteoporosis (07/27/2007) Abnormal thyroid function test (05/15/2007) Esophageal reflux (02/15/2007) Dyslipidemia, goal LDL below 70 (04/27/2006) Impaired fasting glucose (04/27/2006) Menopause (04/25/2006) LOC PRIM OSTEOART-SHLDER (10/19/2004) BMI OVER 40 (10/19/2004) Actinic keratosis (10/19/2004) FAM HX-DIABETES MELLITUS(aka FAMILY) (09/07/2004) FAM HX-LYMPH NEOPLAS NEC(aka FAMILY) (09/07/2004) FAM HX-NEUROLOG DIS NEC(aka FAMILY) (09/07/2004) Uterine leiomyoma (07/23/2003) Chronic rhinitis Other disorder of menstruation and other abnormal bleeding from female genital tract Current Medications busPIRone HCl 5 MG Oral Tablet (Buspar), 5 mg, Oral, BID(AM/PM) Famotidine 20 MG Oral Tablet (Pepcid), 20 mg, Oral, Daily(AM) (Patient taking differently: 20 mg, Oral, Q1700) Fluticasone Propionate 50 MCG/ACT Nasal Suspension (Flonase), 2 [place], Each Nostril, Daily(AM) Multivitamin-Minerals Oral Tablet, 2 Tablet, Oral, Daily(AM) Biotin 1000 MCG Oral Tablet, 1,000 mcg, Oral, Daily(AM) Vitamin D3 50 MCG (1999 UT) Oral Capsule, 2,000 Units, Oral, Daily(AM) Atorvastatin Calcium 40 MG Oral Tablet (Lipitor), 40 mg, Oral, Daily(AM) (Patient not taking: Reported on 01/09/2025) Allergies: No known drug allergy Past Medical History: has a past medical history of Actinic keratosis (10/19/2004), Benign neoplasm of colon (03/15/2011), Chronic rhinitis, and Uterine leiomyoma (09/26/2002). Past Surgical History: has a past surgical history that includes remove tonsils & adenoids, under 12; remove gallbladder; dilation and curettage (d&c) (09/26/2002); total hysterectomy (09/26/2002); stress test (12/31, 07/05, 02/04); Colonoscopy w/ Biopsy (Rectum) (03/04/2011); removal of ovary(s) (Bilateral, 2002); Colonoscopy, Diagnostic (Rectum) (01/10/2024); and EGD, Flexible, Diagnostic (N/A, 10/16/2024). Social History: reports that she has never smoked. She has never been exposed to tobacco smoke. She has never used smokeless tobacco. She reports that she does not drink alcohol and does not use drugs. Family History: family history includes Cancer in her father; Dementia in her sister; Diabetes in her father and mother; Neurological Disorder in her brother, mother, and sister; Other in an other family member; dementia in her mother. Anesthesia History Type of Anesthesia: General Endotracheal and Caudal block Anesthesia reaction: No History of surgical complications: None Personal history of venous thromboembolic disease: No Physical Exam BP 100/68 (BP Site: Left Arm, BP Position: Sitting, BP Cuff Size: Regular) | Pulse 67 | Temp 97.9 °F (36.6 °C) | Resp 16 | Ht 5' 10" (1.778 m) | Wt 274 lb 4.8 oz (124.4 kg) | LMP 06/09/2003 | SpO2 97% | BMI 39.36 kg/m² | BSA 2.48 m² BP Readings from Last 3 Encounters: 01/09/25 100/68 11/20/24 115/74 10/16/24 124/59 Wt Readings from Last 3 Encounters: 01/09/25 274 lb 4.8 oz (124.4 kg) 11/26/24 288 lb 14.4 oz (131 kg) 11/20/24 288 lb 14.4 oz (131 kg) BMI Readings from Last 3 Encounters: 01/09/25 39.36 kg/m² 11/26/24 41.45 kg/m² 11/20/24 41.45 kg/m² BP 100/68 (BP Site: Left Arm, BP Position: Sitting, BP Cuff Size: Regular) | Pulse 67 | Temp 97.9 °F (36.6 °C) | Resp 16 | Ht 5' 10" (1.778 m) | Wt 274 lb 4.8 oz (124.4 kg) | LMP 06/09/2003 | SpO2 97% | BMI 39.36 kg/m² | BSA 2.48 m² General: alert, healthy, and no distress Head: Normocephalic, No masses, lesions, tenderness or abnormalities Eye Exam: PERRLA, extraocular movements intact, conjunctiva are pink and non- injected, sclera clear Ears: External ears normal, Canals clear, TM's Normal Nose: no mucosal erythema, no mucosal edema, no purulent discharge Oropharynx: no exudate, no erythema, lips, buccal mucosa, and tongue normal, and mucous membranes are moist Neck: supple, no adenopathy, no bruits, thyroid normal size, non-tender, without nodularity Lymph: no palpable lymphadenopathy Heart: regular rate & rhythm, no murmur, and no gallops Lungs: chest symmetric with normal AP diameter, no chest deformities noted, no chest wall tenderness, lungs clear to auscultation Pulses: carotid=2/4 w/o bruits Abdomen: abdomen soft, non-tender, normal bowel sounds, and no masses or organomegaly Back: Lumbar paravertebral spasm and tenderness decreased range of motion lumbar flexion L1-L5 Extremities: Tenderness to palpation decreased range of motion left knee with genu valgus deformity, no edema cyanosis or clubbing Neuro Exam: alert & oriented x 3 with fluent speech, no focal motor/sensory deficits, gait normal, reflexes normal and symmetric Skin: skin color, texture, turgor are normal, no rashes or significant lesions Relevant lab results : CMP, Lipid Panel, Hemoglobin A1C, and CBC Surgical Risk Scoring Revised Cardiac Risk Index (RCRI) High-risk type of surgery? 0=No History of ischemic heart disease? 0=No History of congestive heart failure? 0=No History of cerebrovascular disease? 0=No Pre-operative treatment with insulin? 0=No Preoperative serum creatinine >2.0 mg/dL? 0=No Revised cardiac index score No Risk Factors- 0.4% (95% CI: 0.1-0.8) Functional and Surgical Risk Assessment Functional status is good (greater than 4 METS). Patient is low medical risk for the listed procedure. Assessment and Plan Preop examination Patient medically stable for planned procedure Orders: BASIC METABOLIC PANEL; Future PT INR; Future APTT; Future CBC WITH WBC DIFFERENTIAL; Future Primary osteoarthritis of left knee Follow with orthopedic Prediabetes Stable Continue present medication Metformin ER 500 mg 2 tabs once daily Continue reduced caloric intake diabetic diet and exercise Degeneration of intervertebral disc of lumbar region with discogenic back pain Stable Modified home therapeutic exercise Avoid strenuous activities, no heavy lifting Warm compresses four times daily affected area Gastroesophageal reflux disease without esophagitis Stable Continue present medication [place] high-fiber diet Orders: Famotidine 20 MG Oral Tablet (Pepcid); Take 1 Tablet by mouth in the morning and 1 Tablet before bedtime. Perioperative medication adjustments None documented in this encounter Nursing Notes * Diana Oneill CCMA - 01/09/2025 11:24 AM EDT Chief Complaint Patient presents with pre-op exam Pt here for preop exam - Having left knee replacement 01/23 @ [facility] Patient has been verbally educated on the need or importance of COVID and has declined topic(s). documented in this encounter Miscellaneous Notes * Assessment & Plan Note - Malcolm Osman DO - 01/11/2025 12:58 PM EDT Associated Problem(s): Primary osteoarthritis of left knee Follow with orthopedic * Assessment & Plan Note - Malcolm Osman DO - 01/11/2025 12:58 PM EDT Associated Problem(s): Prediabetes Stable Continue present medication Metformin ER 500 mg 2 tabs once daily Continue reduced caloric intake diabetic diet and exercise * Assessment & Plan Note - Malcolm Osman DO - 01/11/2025 12:58 PM EDT Associated Problem(s): Degeneration of intervertebral disc of lumbar region with discogenic back pain Stable Modified home therapeutic exercise Avoid strenuous activities, no heavy lifting Warm compresses four times daily affected area * Assessment & Plan Note - Malcolm Osman DO - 01/11/2025 12:58 PM EDT Associated Problem(s): Esophageal reflux Stable Continue present medication [place]lord high-fiber diet Orders: Famotidine 20 MG Oral Tablet (Pepcid); Take 1 Tablet by mouth in the morning and 1 Tablet before bedtime. documented in this encounter Plan of Treatment Upcoming Encounters Date Type Department Care Team (Late st Contact Info) Description 02/20/2025 11:20 AM EDT Office Visit Family Practice [address] [facility] [address] [place] [address] Malcolm Osman DO [address] [place] [address] 03/11/2025 1:00 PM EDT Nutrition Services Nutrition Services [address] [facility] [address] [place] [address] Molly Ham, KODI [address] [facility] [address] [place] [address] 04/22/2025 9:20 AM EDT Office Visit Dermatology, [facility] [address] [facility] [address] [place] [address] Janae Joseph PA-C [address] [place] [phone] 06/17/2025 4:15 PM EDT Appointment Radiology, [address] [place] [phone] Health Maintenance Due Date Last Done Comments [...] Not on filedocumented as of this encounter Results * APTT (01/09/2025 12:02 PM EDT) aPTT 26 21 - 38 seconds 01/10/2025 12:38 AM EDT LABORATORY [facility] Blood Venous blood specimen / Unknown Venipuncture / Unknown 01/09/2025 12:02 PM EDT 01/09/2025 12:02 PM EDT Narrative LAB[facility]ATORY [facility] - 01/10/2025 12:38 AM EDT Anticoagulation may affect testing. Refer to [facility] Test Catalog for a list of effects. [facility] BLOOD ORDERABLES Final R esult LAB[facility]ATORY [facility] [address] [place] [address] * PT INR (01/09/2025 11:59 AM EDT) Prothrombin Time 14.2 11.6 - 15.2 seconds 01/09/2025 4:43 PM EDT LABORATORY [facility] INR 1.1 0.8 - 1.2 01/09/2025 4:43 PM EDT LABORATORY [facility] Blood Venous blood specimen / Unknown Venipuncture / Unknown 01/09/2025 11:59 AM EDT 01/09/2025 11:59 AM EDT Narrative LABORATORY [facility] - 01/09/2025 4:43 PM EDT Warfarin Therapy INR: 2.0-3.0 conventional anticoagulation INR: 2.5-3.5 high intensity anticoagulation [facility] BLOOD ORDERABLES Final R esult Performing Organization Address City/[facility]/ZIP Co de Phone Number LABORATORY [address] [phone] * BASIC METABOLIC PANEL (01/09/2025 11:59 AM EDT) BUN 16 6 - 20 mg/dL 01/10/2025 3:11 AM EDT LABORATORY [facility] CREATININE 0.6 0.5 - 1.0 mg/dL 01/10/2025 3:11 AM EDT LABOR[facility]ORY [facility] EGFR >90 >=60 mL/min 01/10/2025 3:11 AM EDT LABOR[facility]ORY [facility] Comment:eGFR is calculated b ased on the CKD-EPI 2020 equation. SODIUM 142 135 - 146 mmol/L 01/10/2025 3:11 AM EDT LABORATORY [facility] POTASSIUM 4.2 3.5 - 5.1 mmol/L 01/10/2025 3:11 AM EDT LABORATORY [facility] CHLORIDE 104 98 - 107 mmol/L 01/10/2025 3:11 AM EDT [facility] CO2 25 22 - 32 mmol/L 01/10/2025 3:11 AM EDT [facility] ANION GAP 13 7 - 15 mmol/L 01/10/2025 3:11 AM EDT [facility] GLUCOSE 95 70 - 120 mg/dL 01/10/2025 3:11 AM EDT [facility] CALCIUM 9.4 8.4 - 10.2 mg/dL 01/10/2025 3:11 AM EDT LAB[facility] Blood Venous blood specimen / Unknown Venipuncture / Unknown 01/09/2025 11:59 AM EDT 01/09/2025 11:59 AM EDT Malcolm Osman DO LAB BLOOD ORDERABLES Final R esult LAB[facility]ATORY [facility] [address] [facility] [place] [address] documented in this encounter Visit Diagnoses Diagnosis Preop examination- Primary Preoperative examination, unspecified Primary osteoarthritis of left knee Primary localized osteoarthrosis, lower leg Prediabetes Other abnormal glucose Degeneration of intervertebral disc of lumbar region with discogenic back pain Gastroesophageal reflux disease without esophagitis Esophageal reflux documented in this encounter Advance Directives Documents on File Type Date Recorded Patient Clay Pigeon Setter Expl anation POLST 08/17/2024 signed on 08/16 Care Teams Stress Test Technician Relationship Specialty Start Date End Date Malcolm Osman DO [address] [place] [phone] PCP - General Family Medicine 08/16/24 documented as of this encounter
--- OUTSIDE RECORDS SUMMARY | 2025-01-23 06:52 | External Medical Summary | Summary of Care ---
Author Name Unknown Organization [facility] [address] [facility] [address] Phone [phone] Care Team Providers Care Business Machine Mechanic Name Role Phone Malcolm Osman DO Primary Care Provider [phone] Reason for Visit * Reason Onset Date Comments Other 01/09/2025 Encounter Details Date Type Department Care Team (Late st Contact Info) Description 01/09/2025 Telephone Family Practice [facility] [address] [place] [address] Malcolm Osman DO [address] [place] [address] Other Allergies Active Allergy [...] 12:58 PM EDT): Stable Continue present medication [place] high-fiber diet Orders: Famotidine 20 MG Oral [...] (Pfizer) 12/03/2020,11/05/2020 Pneumococcal Conjugate Vacci ne, 20-valent ([id number]) 10/27/2023 Rabies Vaccine (Rabavert) 05/18/2016,,05/07/2016,2015 Seasonal Influenza, [...] No 08/14/2024 Does the household have a [facility] source of income? (Household - for ages [...] 01/11/2025 2:37 PM EDT Clearance [place] [facility] for preop * Telephone Encounter - Malcolm Osman DO - 01/11/2025 12:59 PM EDT Please see note and fax per request * Telephone Encounter - Diana Oneill CCMA - 01/09/2025 2:11 PM EDT Please complete note so it can be faxed to [facility] for her surgery documented in this encounter Plan of Treatment Upcoming Encounters Date Type Department Care Team (Late st Contact Info) Description 02/20/2025 11:20 AM EDT Office Visit Family Practice [address] [facility] [address] [place] [address] Malcolm Osman DO [address] [place] [address] 03/11/2025 1:00 PM EDT Nutrition Services Nutrition Services [address] [facility] [address] [place] [address] Molly Ham, KAINN 30 [facility] [address] [place] [address] 04/22/2025 9:20 AM EDT Office Visit Dermatology, [facility] [address] [place] [address] Janae Joseph PA-C [address] [place] [address] 06/17/2025 4:15 PM EDT Appointment Radiology, [facility] [address] [place] [phone] Health Maintenance Due Date [...] Documents on File Type Date Recorded Patient White Sugar Syrup Operator Expl anation POLST 08/17/2024 signed on 08/16 Care Teams Business Machine Mechanic Relationship Specialty Start Date End Date Malcolm Osman DO [address] [place] [address] PCP - General Family Medicine 08/16/24 documented as of this encounter
--- OUTSIDE RECORDS SUMMARY | 2025-01-23 06:52 | External Medical Summary | Summary of Care ---
Author Name Unknown Organization [facility] Address [address] [place] [address] Phone [phone] Care Team Providers Care Manager Systems Name Role Phone Malcolm Osman DO Primary Care Provider Reason for Visit * Reason Comments pre-op exam Pt here for preop ex am - Having left knee replacement 01/[address] [facility] Encounter Details Date Type Department Care Team (Latest Contact Info) Description 01/09/2025 11:20 AM EDT Office Visit Family Practice [address] [place] [address] [address] [place] [address] Malcolm Osman DO [address] [place] [id number] Preop examination*; Primary osteoarthritis of left knee; [...] 12:58 PM EDT): Stable Continue present medication [place] high-fiber diet Orders: Famotidine 20 MG Oral [...] mRNA, LNP-s, No Pre serve, 2-Dose Series ([employer]) 12/03/2020,11/05/2020 Pneumococcal Conjugate Vacci ne, 20-valent ([id number]) 10/27/2023 Rabies Vaccine (Rabavert) 05/18/2016,,05/07/2016,2015 Seasonal Influenza, [...] (BMI) of 40.0 to 44.9 in adult ([facility]) (08/16/2024) Diverticulosis of large intestine without hemorrhage (08/16/2024) Positive colorectal cancer screening using Cologuard test (08/16/2024) Prediabetes (11/07/2023) Foot pain (12/15/2015) Other seborrheic keratosis (03/16/2013) AK (actinic keratosis) (03/16/2013) Zhu angioma (03/16/2013) Personal history of malignant neoplasm of skin (03/16/2011) Benign neoplasm of colon (03/15/2011) Body mass index (BMI) of 40.0-44.9 in adult ([facility]) (12/23/2009) Special screening for osteoporosis (07/27/2007) Abnormal [...] Propionate 50 MCG/ACT Nasal Suspension (Flonase), 2 [place], Each Nostril, Daily(AM) Multivitamin-Minerals Oral Tablet, 2 [...] disease without esophagitis Stable Continue present medication [place] high-fiber diet Orders: Famotidine 20 MG Oral Tablet (Pepcid); Take 1 Tablet by mouth in the morning and 1 Tablet before bedtime. Perioperative medication adjustments None documented in this encounter Nursing Notes * Diana Oneill CCMA - 01/09/2025 11:24 AM EDT Chief Complaint Patient presents with pre-op exam Pt here for preop exam - Having left knee replacement 01/[address] [facility] Patient has been verbally educated on the [...] Problem(s): Esophageal reflux Stable Continue present medication [place] high-fiber diet Orders: Famotidine 20 MG Oral Tablet (Pepcid); Take 1 Tablet by mouth in the morning and 1 Tablet before bedtime. documented in this encounter Plan of Treatment Upcoming Encounters Date Type Department Care Team (Late st Contact Info) Description 02/20/2025 11:20 AM EDT Office Visit Family Practice [address] [facility] [address] [place] [address] Malcolm Osman DO [address] [place] [address] 03/11/2025 1:00 PM EDT Nutrition Services Nutrition Services [address] [facility] [address] [place] [address] Molly Ham, KODI 30 [facility] [place] [address] [place] [address] 04/22/2025 9:20 AM EDT Office Visit Dermatology, [place] [address] [facility] [address] [place] [place] [phone] Janae Joseph PA-C [address] [place] [phone] 06/17/2025 4:15 PM EDT Appointment Radiology, [address] [place] [phone] Health Maintenance Due Date Last Done Comments [...] EDT Anticoagulation may affect testing. Refer to [employer] Test Catalog for a list of effects. [facility] BLOOD ORDERABLES Final R esult [facility] [address] [place] [address] * PT INR (01/09/2025 11:59 AM EDT) Prothrombin Time 14.2 11.6 - 15.2 seconds 01/09/2025 4:43 PM EDT [facility] INR 1.1 0.8 - 1.2 01/09/2025 4:43 PM EDT [facility] Blood Venous blood specimen / Unknown Venipuncture / Unknown 01/09/2025 11:59 AM EDT 01/09/2025 11:59 AM EDT Narrative [facility] - 01/09/2025 4:43 PM EDT Warfarin Therapy INR: 2.0-3.0 conventional anticoagulation INR: 2.5-3.5 high intensity anticoagulation [facility] BLOOD ORDERABLES Final R esult Performing Organization Address City/[facility]/ZIP Co de Phone Number LABORATORY [address] [phone] * BASIC METABOLIC PANEL (01/09/2025 11:59 AM EDT) BUN 16 6 - 20 mg/dL 01/10/2025 3:11 AM EDT [facility] CREATININE 0.6 0.5 - 1.0 mg/dL 01/10/2025 3:11 AM EDT [facility] EGFR >90 >=60 mL/min 01/10/2025 3:11 AM EDT [facility] Comment:eGFR is calculated b ased on the CKD-EPI 2020 equation. SODIUM 142 135 - 146 mmol/L 01/10/2025 3:11 AM EDT [facility] POTASSIUM 4.2 3.5 - 5.1 mmol/L 01/10/2025 3:11 AM EDT [facility] CHLORIDE 104 98 - 107 mmol/L 01/10/2025 [...] Final R esult LAB[facility]ATORY [facility] [address] [facility] [place] [phone] documented in this encounter Visit Diagnoses Diagnosis Preop examination- Primary Preoperative examination, unspecified Primary osteoarthritis of left knee Primary localized osteoarthrosis, lower leg Prediabetes Other abnormal glucose Degeneration of intervertebral disc of lumbar region with discogenic back pain Gastroesophageal reflux disease without esophagitis Esophageal reflux documented in this encounter Advance Directives Documents on File Type Date Recorded Patient External Relations Manager Expl anation POLST 08/17/2024 signed on 08/16 Care Teams Manager Systems Relationship Specialty Start Date End Date Malcolm Osman DO [address] [place] [phone] PCP - General Family Medicine 08/16/24 documented as of this encounter
--- OUTSIDE RECORDS SUMMARY | 2025-01-23 06:52 | External Medical Summary ---
Author Name Unknown Address Unknown Organization [id number]:LABORATORY [facility] - [address] [place] [address] Laboratory Report Ordering Provider Test Date Status NEETU GUILLERMOO 01/09/2025 11:59:13 Final Warfarin Therapy
INR: 2 .0-3.0 conventional anticoagulation
INR: 2.5- 3.5 high intensity anticoagulation Observation Date Value Abnormality Reference (Units ) Status PT 01/09/2025 11:59:13 14.2 11.6-15.2 (seconds) Final INR 01/09/2025 11:59:13 1.1 0.8-1.2 Final Performing Location LABORATORY [facility] - [address] [place] [address]
--- OUTSIDE RECORDS SUMMARY | 2025-01-23 06:52 | External Medical Summary ---
Author Name Unknown Address Unknown Organization K01:LABORATORY [facility] - [address] [place] [address] Laboratory Report Ordering Provider Test Date Status DOUG GUILLERMO 01/09/2025 11:59:13 Final Observation Date Value Abnormality Reference (Units ) Status BUN 01/09/2025 11:59:13 16 6-20 (mg/dL) Final Creatinine 01/09/2025 11:59:13 0.6 0.5-1.0 (mg/dL) Final Glomerular filtration rate/1.73 sq M.predicted [Volume Rate/Area] in Serum, Plasma or Blood by Creatinine-based formula (CKD-EPI) 01/09/2025 11:59:13 >90 >=60 (mL/min) Final eGFR is calculated based on the CKD-EPI 2020 equation. Sodium 01/09/2025 11:59:13 142 135-146 (m mol/L) Final Potassium 01/09/2025 11:59:13 4.2 3.5-5.1 (m mol/L) Final Cl 01/09/2025 11:59:13 104 98-107 (mm ol/L) Final CO2 01/09/2025 11:59:13 25 22-32 (mmo l/L) Final Anion gap 01/09/2025 11:59:13 13 7-15 (mmol /L) Final Glucose 01/09/2025 11:59:13 95 70-120 (mg /dL) Final Calcium 01/09/2025 11:59:13 9.4 8.4-10.2 ( mg/dL) Final Performing Location LABORATORY [facility] - [address] [place] [address]
--- OUTSIDE RECORDS SUMMARY | 2025-01-23 06:52 | External Medical Summary | Summary of Care ---
Author Name Unknown Organization [facility] [address] [facility] [address] Phone [phone] Care Team Providers Care Bulb Weeder Name Role Phone Malcolm Osman DO Primary Care Provider [phone] Reason for Visit * Reason Onset Date Comments Other 01/09/2025 Encounter Details Date Type Department Care Team (Late st Contact Info) Description 01/09/2025 Telephone Family Practice 65 [facility] [address] [place] [address] Malcolm Osman DO [address] [place] [address] Other Allergies Active Allergy Reactions Criticality Noted Date Comments No Known Drug Allergy 06/11/2003 documented as of this encounter (statuses as of 01/09/2025) Medications Vitamin D3 50 MCG (1999) Oral [...] (Pfizer) 12/03/2020,11/05/2020 Pneumococcal Conjugate Vacci ne, 20-valent ([id number]) 10/27/2023 Rabies Vaccine (Rabavert) 05/18/2016,,05/07/2016,2015 Seasonal Influenza, [...] note so it can be faxed to [facility] and [facility] for her surgery documented in this encounter Plan of Treatment Upcoming Encounters Date Type Department Care Team (Late st Contact Info) Description 02/20/2025 11:20 AM EDT Office Visit Family Practice 65 [facility] [place] [address] [place] [address] Malcolm Osman, DO [address] [place] [address] 03/11/2025 1:00 PM EDT Nutrition Services Nutrition Services 65 [facility] [place] [address] [place] [address] Molly Ham, KAINN 30 [facility] [address] [place] [phone] 04/22/2025 9:20 AM EDT Office Visit Dermatology, [place] [address] [facility] [address] [address] [phone] Janae Joseph PA-C [address] [place] [address] 06/17/2025 4:15 PM EDT Appointment Radiology, [address] [place] [phone] Health Maintenance Due Date Last Done Comments Sigmoidoscopy 2002 Fecal Occult Blood Test 08/11/2008 08/11/2007, 09/17 Adult Wellness Visit 2023 COVID-19 Vaccine ( season) 2024 12/03/2020, 11/05/2020 Zoster Vaccines (2 of 2) 01/15/2025 11/20/2024 Mammogram 06/12/2025 06/12/2024, 05/0 04/2023, 12/07/2021, Additional history exists HbA1c 08/29/2025 08/29/2024, 09/2023, 06/20/2012, Additional history exists Depression Screening [...] Documents on File Type Date Recorded Patient Gaming Surveillance Observer Expl anation POLST 08/17/2024 signed on 08/16 Care Teams Bulb Weeder Relationship Specialty Start Date End Date Malcolm Osman DO [address] [place] [id number] PCP - General Family Medicine 08/16/24 documented as of this encounter
--- NOTE | 2025-01-23 07:10 | History & Physical Bridge Note ---
Date of Service January 23, 2025 History & Physical Bridge Note I have examined the patient, reviewed the History & Physical and in the interval since the performance of the History & Physical I have noted the following changes of clinical significance: no changes noted
[2025-01-23] MEDS: TRANEXAMIC ACID 1,000 MG **IV Pre-op IV SCH (07:11)
[2025-01-23] MEDS: ceFAZolin 3000MG 3,000 MG/72.5 ML BAG IV SCH (07:30)
[2025-01-23] MEDS: ORTHO JOINT ANESTHETIC ONE (08:08)
[2025-01-23] MEDS: ROPIV 0.5% 246mg, Ketorolac 30mg, EPINEPHrine 0.5mg in NSS INFIL SCH (09:20)
[2025-01-23] MEDS: TRANEXAMIC ACID 1,000 MG **IV Intra-op IV SCH (09:43)
--- NOTE | 2025-01-23 10:34 | Operative Report ---
Post Operative Report Pre & Post Diagnosis Operation Date: 01/23/25 07:00 Pre-Op Diagnosis: Bilateral primary osteoarthritis of knee, left greater than right Post-Op Diagnosis: Bilateral primary osteoarthritis of knee, left greater than right I identified the patient and participated in the time-out.: Yes Procedure Operation Date: 01/23/25 07:00 Actual Procedures p Left Total Knee Arthroplasty(Left) lateral release, sae and Acticoat superficial wound VAC application- Ham Sullivan MD Surgeon Ham Sullivan MD Ink Blender Deng [place] Estimated Blood Loss 10 Findings Consistent with Post-Op Diagnosis Specimens Bone cuts Drains 2 Hemovac Anesthesia Type MAC Spinal Regional Complications none Disposition Disposition: Recovery Room Indications 69-year-old female with severe bilateral knee osteoarthritis with valgus knees [id number] lateral compartment with hypoplastic lateral femoral condyles arthritis more severe left than right left knee has tricompartmental osteoarthritis as well as the right. Description of Procedure Patient taken to the operating room anesthetized under spinal MAC regional block anesthesia. Patient was placed supine on the operating table. A pneumatic tourniquet was placed about the left obese upper thigh. The left lower extremity was prepped and draped in sterile fashion. Knee exam demonstrated marked valgus alignment with no lateral pseudolaxity some laxity of the MCL flexion contracture 15 degrees with flexion to 125 degrees.. The leg was elevated exsanguinated with an Esmarch bandage and pneumatic tourniquet was raised to 350 millimeters of mercury. Skin incised sharply in longitudinal fashion. Subcutaneous flaps elevated. Incision was made through the medial r etinaculum extending up in the mid third of the quadriceps tendon and down to the medial tibial tubercle. Intra-articular findings demonstrated tricompartmental osteoarthritis bone mass lateral compartment hypoplastic lateral femoral condyle marked valgus alignment of the femoral articular surface due to bone loss laterally.. The TeraFirrman total knee arthroplasty system was used. To expose the knee the infrapatellar fat pad was resected. The meniscal remnants and cruciate ligaments were resected. The anterior fat pad over the femur in the area of the location of the anterior flange of the femoral component was resected. The lateral synovial bands were released. The femur was exposed. Large osteophytes were excised with a rongeur. An intramedullary drill hole was made into the canal. A guide damaso was placed. Distal femoral cutting guide was adjusted to resect a 6 degree valgus cut with 10 millimeters distal femur resected. When this cut was made on the lateral femoral condyle it barely grazed the bone so we had to take an additional 2 mm resection to make bone contact laterally due to the bone loss. The knee was extended and a subperiosteal peel lateral release was performed around the patella. Patella width was measured and width was reproduced using a freehand cut technique and a 35 x 10 mm asymmetric patella component. The 3 drill holes were made and the excess lateral facet was beveled off to prevent any impingement. Attention was taken back to the femur which was exposed with retractors and the femoral sizing guide was pinned in position. The drill holes were placed in 3 of external rotation to match the epicondylar axis. Because this was posterior reference device did not make contact with the lateral femoral condyle as we had to externally rotate the cutting block in line with the epicondylar axis and pinned in position. The femur sized for a 5 component. This component had the best medial lateral fit so we did use a +1.5 anterior a djustment block to prevent notching anteriorly. The 4-in-1 cutting block was placed and then the anterior posterior and chamfer cuts are made. The tibia was then subluxed. The external tibial cutting guide was adjusted to make a perpendicular cut to the long axis of the tibia below the most deficient bone loss side laterally. Cut was adjusted for slope. A lamina intern architect was used and the flexion extension gaps were balanced. Lateral capsular and subperiosteal IT band and popliteus tendon releases were required. All posterior osteophytes removed. All meniscal remnants were resected. The tibia exposed and the trial tibial component size 5 was maximally externally rotated in line with the tibial tubercle and pinned in position. The drill and punch for stem was used. The notch cutting device was centered appropriately and the femoral notch cut was made. The femoral trial was inserted. Trial tibial inserts were placed and size 16 mm posterior stabilized gave balanced ligaments through flexion and extension. Patella tracking was assessed. The patella tracked laterally which required a lateral release that was performed leaving the synovium intact and this corrected the patella tracking to central. The trial components were then removed and the orthomix anesthetic cocktail was injected per protocol. The knee was then copiously irrigated with pulsatile lavage saline solution. Final components were then cemented with Refobacin cement. Final components were Nacho triathlon size 5 left posterior stabilized femoral component with a 5 universal tibial baseplate with a 12 x 50 mm cemented stem added to the baseplate with a 16 mm posterior stabilized X.3 polyethylene tibial bearing insert and a 35 x 10 mm asymmetric X.3 polyethylene patella and we used distal fixation pegs on the femur as well.. After the cement cured a 3-minute Betadine soak was performed followed by further pulsatile lavage irrigation was then performed with saline and 2 Hemovac drains were brought out laterally. The quadriceps tendon and medial retinaculum were closed with #2 FiberWire vfnovw-xy-[id number] sutures along the medial retinaculum medial side of the patella and distal quadriceps tendon and an additional [id number] suture at the apex of the quadriceps tendon split proximally and an additional hwtzoh-bc-ihxvm suture at the level of the tibial polyethylene in the patella tendon. a 0 running locking STRATAFIX suture was placed starting at the proximal split in the quadriceps tendon extending down to the inferior pole the patella and then below that level ygsyvx-fh-ztsow #1 Vicryl sutures were utilized to repair the medial retinaculum to the patella tendon. The knee was taken through full range of motion and the repair was secure. Knee range of motion was 0 through 125 degrees. The subcutaneous tissues were closed with 2-0 Vicryl sutures. Skin was closed with surgical maria isabel. A sae and Acticoat superficial wound VAC was applied. The patient tolerated the procedure well. Deng MALDONADO was my physician doctor's assistant who participated as banking assistant and was involved in all aspects of the procedure including patient positioning prepping and draping,leg positioning ,soft tissue retraction and instrument management and participated in the closing and application of the wound VAC and will participate in postoperative care of the patient. The patient tolerated the procedure well. I attest to the content of the Intraoperative Record and any orders documented therein. Any exceptions are noted below.
--- NOTE | 2025-01-23 10:59 | XRay Report ---
XR knee LT 1 or 2V routine CLINICAL HISTORY: Surgical Post Op COMPARISON: None pertinent FINDINGS: 2 postoperative views of the left knee demonstrate a total knee arthroplasty with satisfac tory positioning and alignment of the prosthetic components. There is a surgical drain in place. Post surgical soft tissue changes are noted. IMPRESSION: Satisfactory postop appearance. ACT 112: Negative or not required by law. Electronically signed by: Blank Moise M.D. 01/23/2025 10:57 AM
[2025-01-23] MEDS ORDERED: NALOXONE HCL 0.4 MG/1 ML VIAL/CARP IV PRN (11:32)
[2025-01-23] MEDS ORDERED: MAGNESIUM HYDROXIDE SUSP 30 ML UDC PO PRN (11:32)
[2025-01-23] MEDS ORDERED: bisacodyL 10 MG SUPP PR PRN (11:32)
[2025-01-23] MEDS ORDERED: HYDROmorphone INJ 0.5 MG/0.5 ML SYR IV PRN (11:32)
[2025-01-23] MEDS ORDERED: METOCLOPRAMIDE HCL INJ 5 MG/ML 2 ML VIAL IV PRN (11:32)
[2025-01-23] MEDS ORDERED: diphenhydrAMINE Capsule 25 MG CAP PO PRN (11:32)
[2025-01-23] MEDS ORDERED: ALUMINUM/MAGNESIUM SUSP 30 ML UDC PO PRN (11:32)
[2025-01-23] MEDS ORDERED: PHARMACY GLYCEMIC MGMT CONSULT PRN (11:32)
[2025-01-23] MEDS ORDERED: GLUCOSE 10 TAB/TUBE PO PRN (12:00)
[2025-01-23] MEDS ORDERED: GLUCOSE 40% GEL 15 GM TUBE PO PRN (12:00)
[2025-01-23] MEDS ORDERED: DEXTROSE 50% 50 ML SYRINGE IV PRN (12:00)
[2025-01-23] MEDS ORDERED: GLUCAGON FOR INJ 1 MG VIAL SQ PRN (12:00)
[2025-01-23] MEDS ORDERED: CARBOHYDRATES FOR HYPOGLYCEMIA PO PRN (12:00)
--- NOTE | 2025-01-23 12:01 | Pharmacy Report ---
Pharmacy Glycemic Short Note 2 - Date of Service January 23, 2025 - Glycemic Short BSG Results (Last 24 hours): 01/23/25 01/23/25 05:47 11:40 POC Glucose 105 H 116 H OUTPATIENT ANTIDIABETIC REGIMEN: * metformin 500 mg PO BIDM HbA1c: 5.9% (12/26/24) ASSESSMENT: * ES is a 69 year old female POD #0 s/p left total knee arthroplasty * No steroids administered in OR, dexamethasone 10 mg IV x 1 ordered for 01/24/25 AM * Preop blood sugar of 105 mg/dL, postop blood sugar of 116 mg/dL * Patient is prediabetic and controlled with metformin as an outpatient * May need to intensify regimen tomorrow with steroids PLAN FOR INPATIENT GLYCEMIC CONTROL: * Hold outpatient oral diabetes medications * Consider restarting metformin on POD #1 * Basal insulin * hold * Bolus insulin * NovoLog per scale ACHS or Q6hrs while NPO * Goal Range: Low 110 mg/dL - High 140 mg/dL * Correction Factor: 30 mg/dL/unit * Nutritional / Prandial insulin per carb ratio of 1 unit per 10 grams CHO consumed
[2025-01-23] MEDS: oxyCODONE HCL IR 5 MG TAB (IMMEDIATE RELEASE) PO PRN (12:49)
[2025-01-23] MEDS: INSULIN ASPART PER UNIT CHARGE SC SCH (12:50)
--- NOTE | 2025-01-23 15:09 | Anesthesiology Progress Note ---
Date of Service January 23, 2025 Anesthesia Post Procedure Vital Signs Vital Signs: Temp Pulse Pulse Resp BP Pulse Ox O2 Del Method 01/23/25 14:55 36.4 C L 64 16 150/81 H 97 Room Air 01/23/25 13:55 36.5 C 67 16 171/84 H 99 Room Air 01/23/25 12:30 36.3 C L 67 16 138/85 99 Room Air 01/23/25 12:06 74 16 145/87 H 98 Room Air 01/23/25 11:32 36.4 C L 68 18 144/82 H 98 Room Air 01/23/25 11:15 70 20 146/83 H 97 Room Air 01/23/25 11:00 83 12 145/79 H 98 Room Air 01/23/25 10:55 36.4 C L 76 16 153/75 H 97 Room Air 01/23/25 10:45 83 20 150/86 H 95 Room Air 01/23/25 10:35 83 16 151/81 H 95 Oxymask 01/23/25 10:25 36.6 C 89 14 143/71 H 94 Oxymask 01/23/25 05:53 36.8 C 69 18 154/84 H 98 Room Air O2 Flow Rate 01/23/25 14:55 01/23/25 13:55 01/23/25 12:30 01/23/25 12:06 01/23/25 11:32 01/23/25 11:15 01/23/25 11:00 01/23/25 10:55 01/23/25 10:45 01/23/25 10:35 4 01/23/25 10:25 6 01/23/25 05:53 Pain Intensity Lower Back: Pain Intensity: 4 Transfer of Care Handoff Completed per policy Notes Mental Status: alert / awake / arousable and participated in evaluation Patient Amnestic to Procedure: Yes Nausea / Vomiting: adequately controlled Pain: adequately controlled Airway Patency, RR, SpO2: stable & adequate BP & HR: stable & adequate Hydration State: stable & adequate Neuraxial Anesthesia: was administered and sensory block is resolving Anesthetic Complications: no major complications apparent and Pt Satisfied with anesthetic care
[2025-01-23] MEDS: TRANEXAMIC ACID / 0.7% NACL 1,000 MG/100 ML BAG IV SCH (16:42)
[2025-01-23] MEDS: ceFAZolin 2000MG 2,000 MG/15 ML SYR IV SCH (16:43)
[2025-01-23] MEDS: KETOROLAC TROMETHAMINE 15 MG/ML VIAL IV PRN (16:44)
[2025-01-23] MEDS ORDERED: metFORMIN HCL 500 MG TAB PO SCH (21:00)
[2025-01-23] MEDS: busPIRone 5 MG TAB PO SCH (21:12)
[2025-01-23] MEDS: ASPIRIN 81 MG ECTAB PO SCH (21:12)
[2025-01-23] MEDS: DOCUSATE SODIUM 100 MG CAP PO SCH (21:13)
[2025-01-23] MEDS: SENNA 8.6 MG TAB PO SCH (21:14)
[2025-01-24 06:25] LABS: Hematocrit (blood only) 34.7 % (37.0-47.0); Hemoglobin 11.5 g/dl (12.0-16.0); Mean Corpuscular Hemoglobin 29.7 pg (25.0-34.0); Mean Corpuscular Hgb Conc 33.1 g/dL (32.0-36.0); Mean Corpuscular Volume 89.7 fL (80.0-100.0); Mean Platelet Volume 9.6 fL (9.4-12.4); Platelet Count 308 K/uL (130-400); RDW Coefficient of Variation 14.5 % (11.5-14.5); RDW Standard Deviation 47.1 fL (36.4-46.3); Red Blood Count 3.87 M/uL (4.20-5.40)
[2025-01-24 06:48] LABS: BUN Creatinine Ratio 26.8 (10-20); Calcium 8.6 mg/dl (8.6-10.3); Potassium 3.9 mmol/L (3.5-5.1)
[2025-01-24 07:05] VITALS: BP 161/84; PULSE 69; RESP 16; TEMP 98.4; O2SAT 93
--- NOTE | 2025-01-24 07:37 | Orthopedic Progress Note ---
Date of Service January 24, 2025 Assessment & Plan (1) Bilateral primary osteoarthritis of knee: Plan: Postop day 1 total knee replacement. Hemovac drainage has decreased over time and can be discontinued prior to discharge. Patient wants to have home health come for 2 weeks and then do outpatient PT that can be arranged. She will follow-up in the office in 2 weeks for staple removal. Current plan is to proceed with a left knee replacement on the worst knee. May require stemmed implant and or constrained polyethylene implant for stability purposes due to chronic MCL laxity and bone loss lateral compartment. Admission and Anticipated Discharge Date Admission Date: January 23, 2025 Subjective Having some pain today but managed by oxycodone Review of Systems Review of Systems: Patient feels well no chest pain shortness of breath otherwise noncontributory Physical Exam Musculoskeletal: Circulation sensorimotor exam intact distally. Dressing dry and intact. Patient needs assistance with straight leg raise. Christian intact. Results & Data Vital Signs (Past 12 Hours) Vital Signs Temp Pulse Resp BP Pulse Ox O2 Del Method 01/24/25 07:04 36.9 C 69 16 161/84 H 93 Room Air 01/24/25 03:10 36.8 C 70 18 158/79 H 95 Room Air 01/23/25 23:08 36.7 C 67 20 134/81 95 Room Air 01/23/25 19:50 Room Air Diagnostic Findings Satisfactory aligned total knee replacement on 2 views.
[2025-01-24] MEDS: MULTIVITAMIN TAB PO SCH (08:12)
[2025-01-24] MEDS: ADVANCED PROBIOTIC 625 MG CAPSULE PO SCH (08:12)
[2025-01-24] MEDS: CHOLECALCIFEROL 25 MCG (1000 UNITS) TAB PO SCH (08:12)
[2025-01-24] MEDS: CYANOCOBALAMIN (B-12) 2,500 MCG TABLET PO SCH (08:12)
[2025-01-24] MEDS: dexAMETHasone 10 MG in SYRINGE 0 ML IV SCH (08:13)
[2025-01-24] MEDS ORDERED: NON-FORMULARY MEDICATION (Biotin 1,000 mcg Tablet,Chewable) PO SCH (09:00)
[2025-01-24] MEDS ORDERED: [UNRECOGNIZED DRUG - OTHER] PO SCH (09:00)
[2025-01-24] MEDS ORDERED: LANTUS PER UNIT CHARGE SC ONE (09:00)
[2025-01-24] MEDS: ONDANSETRON INJ 2 MG/ML 2 ML VIAL IV PRN (10:59)
--- NOTE | 2025-01-29 15:58 | Discharge Summary ---
Date of Service January 29, 2025 Admission HPI Per Admitting Provider 69-year-old female with chronic bilateral knee pain with severe end-stage osteoarthritis presents for left knee replacement Patient denies headaches, sweats, fevers, chills, double vision, blurred vision, cough, sore throat, dysphagia, chest pain, sob at rest has some running short distance, wheezing, n/v/d/c, numbness, tingling, fatigue, urinary symptoms. ROS positive for acid reflux hiatal hernia, severe nausea and vomiting with anesthesia and family member having problem with anesthesia Principal Diagnosis Left knee osteoarthritis Discharge Data Allergies Allergy/AdvReac Type Severity Reaction Status Date / Time codeine AdvReac Intermediate "[place] like Verified 01/23/25 05:50 was passing out" Procedures Performed Operation Date: 01/23/25 07:00 Actual Procedures p Left Total Knee Arthroplasty(Left) - Ham Sullivan MD Ordered Studies 01/23/25 05:00 US - OR guided needle placemen Routine Hospital Course (1) Bilateral primary osteoarthritis of knee: Postop day 1 total knee replacement. Hemovac drainage has decreased over time and can be discontinued prior to discharge. Patient wants to have home health come for 2 weeks and then do outpatient PT that can be arranged. She will follow-up in the office in 2 weeks for staple removal. Current plan is to proceed with a left knee replacement on the worst knee. May require stemmed implant and or constrained polyethylene implant for stability purposes due to chronic MCL laxity and bone loss lateral compartment. Total Time Total Time Spent Total Time Spent (In Minutes): 20 Discharge Plan Discharge Items Patient Disposition: Home - Home Health Services Reason For Visit: Left Knee Osteoarthrits Discharge Diagnosis: Left knee osteoarthritis Genu valgum Activity: Per Instructions section Non-emergency contact: Primary Care Provider and Surgeon Call non-emergency contact if: your pain is not controlled, your pain is worsening and your temperature is above 101 Follow-up/Referrals: Malcolm Osman DO [Primary Care Provider] - Diet: Regular Addtl Attending Provider Instructions: ACTIVITY RECOMMENDATIONS: SELF CARE INSTRUCTIONS AFTER TOTAL KNEE REPLACEMENT A. You may need to continue a physical therapy program after discharge from the hospital. There are several options available to you. Your doctor will assist you in selecting the best one for you. 1. An out-patient facility 3 times a week for therapy. 2. Home therapy for 1 to 2 weeks with outpatient therapy to follow. 3. Continue working on all exercises taught by physical therapy three times a day for 20 minutes on non-therapy days. Your goals should be to increase the bending of your knee to 90 degrees and beyond and to fully straighten your knee. Ice and elevate knee after exercise. B. Weight as tolerated with a walker or as instructed by your physician. C. It is okay to shower if minimal to no drainage from incision. No Baths. Do not soak wound. D. Make walking a part of your daily routine. Be up as much as comfortable with rest periods throughout the day. Rest with leg elevation is very important. Use the ice wrap frequently for the first 3-4 weeks. E. There are no restrictions on activities. You may ride in a car, shop, participate in cage loader and all social activities. F. Wear the long elastic stockings (TATA hose) 20 hours a day for one month after surgery. They can be removed several times a day for laundering and when showering. G. You may return to previous diet. HARJIT dressing: You have a HARJIT dressing on your surgical wound. It will remain in place for 7 days from surgery. You will be provided with a booklet with the do's and don'ts with the dressing in place. After 7 days, the dressing may be removed. If there is drainage from the surgical incision, you may cover the wound with dry dressings SPECIAL CARE INSTRUCTIONS: VERY IMPORTANT TO READ AND REVIEW A. Take Coumadin, Xarelto, Aspirin or Lovenox (blood thinning medications) as directed by your doctor. If on Coumadin, have a pro-time (blood test) drawn according to your doctor's instructions. This will tell the doctor how well the Coumadin is thinning your blood. B. There are a few signs you need to watch for after you are home. Call [facility] if you notice any of the followin. Increased severe knee pain. Some pain is expected especially when you exercise. 2. Increased swelling in your leg or knee; pain or swelling of the calf muscle in either lower leg. 3. Any redness or fluid drainage from the incision. 4. Shortness of breath or chest pain. 5. A Temperature of 101 degrees F or greater. C. Please call [facility] at if you have any concerns or questions about your operation or recovery. The doctor or his nurse will return your call promptly. D. You must take antibiotics before dental work, bladder, bowel or other surgery. Your doctor will provide you with a permanent care to carry describing this precaution. FOLLOW UP VISIT: If appointment is not already scheduled: Please call [facility] to make a follow-up appointment for 2 weeks after your surgery at . Pending Studies at Discharge: No Stand-Alone Forms: My [facility], Smoking Cessation Medications and DC Order Prescriptions: New celecoxib [Celebrex] 200 mg capsule 200 mg PO Q12H Qty: 60 0RF aspirin 81 mg tablet,delayed release (DR/EC) 81 mg PO BID Qty: 60 0RF cefadroxil 500 mg capsule 500 mg PO Q12H 14 Days Qty: 28 0RF oxycodone 5 mg tablet 5 mg PO Q4H PRN (Reason: pain) Qty: 20 0RF acetaminophen [Tylenol Extra Strength] 500 mg tablet 1,000 mg PO Q8H Qty: 90 0RF Continued buspirone 5 mg Tablet 5 mg PO BID metformin 500 mg Tablet 500 mg PO BID famotidine 20 mg Tablet 20 mg PO HS cholecalciferol (vitamin D3) [Vitamin D3] 25 mcg (1,000 unit) Capsule 25 mcg PO DAILY Probiotic 5 billion cell Capsule, Sprinkle 1 cap PO DAILY cyanocobalamin (vitamin B-12) 2,500 mcg Tablet 2,500 mcg PO DAILY biotin 1,000 mcg Tablet,Chewable 1,000 mcg PO DAILY mv,Ca,min-folic acid-vit K1 400-20 mcg Tablet 1 tab PO DAILY Krames/Other Patient Handouts: Oxycodone Oral Tablet, Cefadroxil Oral Capsule, Celecoxib Oral Capsule, Knee Replace Home Recovery, Knee Replace Control Swelling Admission Data Admit Date/Time: 01/23/25 10:37 Attending Provider: Ham Sullivan Admit Provider: Ham Sullivan Primary Care Provider: Malcolm Osman Other Providers: [facility],Home Healthcare Other Interventions: Discharge Summary Assessment (RN) Last Done: 01/24/25 10:01
== END 2025-01-24 12:34 | disposition home health service (06) ==
LOC: 3E 05:27 → ASU 05:27
DX: R73.03 Prediabetes; Z79.899 Other long term (current) drug therapy; F41.9 Anxiety disorder, unspecified; E78.5 Hyperlipidemia, unspecified; M17.12 Unilateral primary osteoarthritis, left knee; Z88.5 Allergy status to narcotic agent; K21.9 Gastro-esophageal reflux disease without esophagitis; Z79.84 Long term (current) use of oral hypoglycemic drugs

== ENCOUNTER 2025-06-26 05:22 | Observation (INO) ==
--- NOTE | 2025-06-14 10:11 | Anesthesiology Consultation ---
Date of Service June 14, 2025 Assessment & Plan Chart Review Chart Review: Acceptable Risk for Surgery and Patient NOT seen in Pre Admission Testing History Surgery Operation Date: 06/26/25 09:55 Proposed Procedures p Right Total Knee Arthroplasty - Ham Sullivan MD Height/Weight Height: 5 ft 10 in Weight: 120.202 kg Allergies Allergy/AdvReac Type Severity Reaction Status Date / Time codeine AdvReac Intermediate "[place] like Verified 06/13/25 14:30 was passing out" Medications Home Medications Medication Instructions Recorded Confirmed Last Taken Lactobacil.acidophilus-Bifido.animalis 1 cap PO DAILY 12/24/24 06/13/25 01/21/25 5 billion cell sprinkle capsule (Probiotic) biotin 1,000 mcg chewable tablet 1,000 mcg PO DAILY 12/24/24 06/13/25 01/22/25 buspirone 5 mg tablet 5 mg PO BID 12/24/24 06/13/25 01/22/25 19:00 cholecalciferol (vitamin D3) 25 25 mcg PO DAILY 12/24/24 06/13/25 01/22/25 19:00 mcg (1,000 unit) capsule (Vitamin D3) cyanocobalamin (vitamin B-12) 2,500 mcg PO DAILY 12/24/24 06/13/25 01/22/25 19:00 2,500 mcg tablet metformin 500 mg tablet 1,000 mg PO QAM 12/24/24 06/13/25 01/22/25 19:00 yhhcuwrowler-ozoaevji-bzahihz-folic 1 tab PO DAILY 12/24/24 06/13/25 01/22/25 09:00 acid 400 mcg-vit K1 20 mcg tablet acetaminophen 500 mg tablet 1,000 mg (2 x 500 mg) PO Q8H #90 01/23/25 06/13/25 Unknown (Tylenol Extra Strength) tabs loratadine 10 mg tablet 10 mg PO QAM 06/13/25 06/13/25 Unknown magnesium citrate 100 mg capsule 100 mg PO DAILY PRN . 06/13/25 06/13/25 Unknown Past Medical History Medical History Bilateral primary osteoarthritis of knee GERD (gastroesophageal reflux disease) Hiatal hernia Prediabetes Taking Metformin Anxiety Hyperlipidemia Past Family History Family History Sister History of postoperative nausea and vomiting Father Diabetes Past Surgical History Surgical History History of total left knee replacement (01/23/25) History of postoperative nausea and vomiting History of arthroscopy right knee Hx of foot surgery B/L bone spurs History of cholecystectomy History of colonoscopy History of esophagogastroduodenoscopy (EGD) History of hysterectomy History of tooth extraction History of tonsillectomy Social History Smoking Status: Never smoker Do You Dip or Chew Tobacco: No Hx Alcohol Use: No Hx Substance Use: No substance use type: does not use
--- NOTE | 2025-06-22 11:13 | History & Physical Report ---
Date of Service June 22, 2025 Assessment & Plan (1) Osteoarthritis of right knee: Plan: End-stage right knee osteoarthritis. Plan for [place] triathlon right total knee replacement with cemented stem extension on tibia similar to opposite knee. Osteoarthritis type: primary Qualified Code(s): M17.11 - Unilateral primary osteoarthritis, right knee History of Present Illness Chief Complaint: Chronic right knee pain Primary Care Provider: Malcolm Osman DO 69-year-old female with chronic progressive osteoarthritis right knee failed conservative management. Patient denies headaches, sweats, fevers, chills, double vision, blurred vision, cough, sore throat, dysphagia, chest pain, sob, wheezing, n/v/d/c, numbness, tingling, fatigue, urinary symptoms, mood disorders. ROS positive for acid reflux and upper back pain Allergies Allergy/AdvReac Type Severity Reaction Status Date / Time codeine AdvReac Intermediate "[place] like Verified 06/13/25 14:30 was passing out" Home Medications Medication Instructions Recorded Confirmed Type Lactobacil.acidophilus-Bifido.animalis 1 cap PO DAILY 12/24/24 06/13/25 History 5 billion cell sprinkle capsule (Probiotic) biotin 1,000 mcg chewable tablet 1,000 mcg PO DAILY 12/24/24 06/13/25 History buspirone 5 mg tablet 5 mg PO BID 12/24/24 06/13/25 History cholecalciferol (vitamin D3) 25 25 mcg PO DAILY 12/24/24 06/13/25 History mcg (1,000 unit) capsule (Vitamin D3) cyanocobalamin (vitamin B-12) 2,500 mcg PO DAILY 12/24/24 06/13/25 History 2,500 mcg tablet metformin 500 mg tablet 1,000 mg PO QAM 12/24/24 06/13/25 History qhrughgrtssm-tuwyncsv-zbubpwc-folic 1 tab PO DAILY 12/24/24 06/13/25 History acid 400 mcg-vit K1 20 mcg tablet acetaminophen 500 mg tablet 1,000 mg (2 x 500 mg) PO Q8H #90 01/23/25 06/13/25 Rx (Tylenol Extra Strength) tabs loratadine 10 mg tablet 10 mg PO QAM 06/13/25 06/13/25 History magnesium citrate 100 mg capsule 100 mg PO DAILY PRN . 06/13/25 06/13/25 History Past Med/Surg History Problem List (Updated 06/22/25 @ 11:20 by Ham Sullivan MD) Osteoarthritis of right knee Medical History Bilateral primary osteoarthritis of knee GERD (gastroesophageal reflux disease) Hiatal hernia Prediabetes Taking Metformin Anxiety Hyperlipidemia Surgical History History of total left knee replacement (01/23/25) History of postoperative nausea and vomiting History of arthroscopy right knee Hx of foot surgery B/L bone spurs History of cholecystectomy History of colonoscopy History of esophagogastroduodenoscopy (EGD) History of hysterectomy History of tooth extraction History of tonsillectomy Family History Sister History of postoperative nausea and vomiting Father Diabetes Social History Smoking Status: Never smoker Second Hand Exposure: No; Do You Dip or Chew Tobacco: No; Tobacco Cessation Education Requested by Patient: No Hx Alcohol Use: No Hx Substance Use: No Preferred Language: Indian Communication Ability: Effective Malt Loader Required: No Beliefs That Will Affect Care: None Current Living Situation: Spouse Other Information That Helps Us Care for You: No Feels Safe at Home: Yes Safety Concerns: Feels Safe At This Time Assistive Devices: Glasses and Other Assistive Devices Comment: Upper Partial Review of Systems All systems reviewed & are unremarkable except as noted in HPI & below Physical Exam Constitutional: WD/WN, vitals as above Obesity primary abdominal Respiratory: normal respiratory effort; no respiratory distress Cardiovascular: Rate/Rhythm: regular rate and regular rhythm Musculoskeletal: Valgus right knee posterior lateral joint pain 0 through 120 degrees range of motion morbid obesity but obesity more abdominal and moderate at the knee level distal circulation sensorimotor exam intact Skin: no rashes, warm and dry Neurologic: normal touch/pain/proprioception Psychiatric: A+Ox3, euthymic affect Results & Data Diagnostic Findings Grade 4 lateral compartment osteoarthritis with patellofemoral and lateral compartment osteoarthritis. Well aligned [place] triathlon left knee replacement.
[2025-06-26] MEDS: LR 500ML BOLUS, THEN 15ML/HR IV SCH (05:57)
[2025-06-26] MEDS: LR 60ML/HR IV SCH (05:57)
[2025-06-26] MEDS: GABAPENTIN 300 MG CAP PO SCH (05:59)
[2025-06-26] MEDS: ACETAMINOPHEN 500 MG TAB PO SCH ×2 (05:59→14:30)
[2025-06-26] MEDS: CeleBREX 200 MG CAP PO SCH (05:59)
[2025-06-26] MEDS: FAMOTIDINE 20 MG TAB PO SCH (06:00)
[2025-06-26] MEDS: METOCLOPRAMIDE HCL 10 MG TABLET PO SCH (06:00)
[2025-06-26] MEDS: dexAMETHasone**PF** 10 MG/ML VIAL IV SCH (06:00)
[2025-06-26] MEDS ORDERED: MIDAZOLAM HCL 1 MG/ML 2ML VIAL ONE ×2 (06:17→06:50)
[2025-06-26] MEDS ORDERED: LIDOCAINE 2% 2 ML VIAL/AMP(20MG/ML) INFIL ONE (06:17)
[2025-06-26] MEDS ORDERED: PROPOFOL IV EMULSION 10 MG/ML 100 ML VIAL IV ONE (06:24)
[2025-06-26] MEDS ORDERED: EPINEPHrine INJ 1 MG/ML AMP ONE (06:28)
[2025-06-26] MEDS ORDERED: DEXAMETHASONE SOD INJ 4 MG/ML VIAL ONE (06:28)
[2025-06-26] MEDS ORDERED: BUPIVACAINE 0.25% PF 30 ML VIAL ONE (06:28)
[2025-06-26] MEDS ORDERED: BUPIVACAINE 0.5 % 5 MG/1 ML PF 10ML VIAL ONE (06:28)
[2025-06-26] MEDS ORDERED: ONDANSETRON INJ 2 MG/ML 2 ML VIAL IV PRN ×2 (06:52→13:34)
[2025-06-26] MEDS ORDERED: PROMETHAZINE HCL 6.25 MG in SODIUM CHLORIDE 0.9% 50 ML IV PRN (06:52)
[2025-06-26] MEDS ORDERED: ATROPINE SULFATE 0.1 MG/ML 10ML SYR IV PRN (06:52)
[2025-06-26] MEDS: TRANEXAMIC ACID 1,000 MG **IV Pre-op IV SCH (07:05)
--- NOTE | 2025-06-26 07:16 | History & Physical Bridge Note ---
Date of Service June 26, 2025 History & Physical Bridge Note I have examined the patient, reviewed the History & Physical and in the interval since the performance of the History & Physical I have noted the following changes of clinical significance: no changes noted
[2025-06-26] MEDS: ceFAZolin 3000MG 3,000 MG/72.5 ML BAG IV SCH (07:35)
[2025-06-26] MEDS ORDERED: PROPOFOL IV EMULSION 10 MG/ML 20 ML VIAL IV ONE (07:39)
[2025-06-26] MEDS ORDERED: ONDANSETRON INJ 2 MG/ML 2 ML VIAL ONE (07:56)
[2025-06-26] MEDS: ROPIV 0.5% 246mg, Ketorolac 30mg, EPINEPHrine 0.5mg in NSS INFIL SCH (08:08)
[2025-06-26] MEDS: ORTHO JOINT ANESTHETIC ONE (08:08)
--- NOTE | 2025-06-26 10:22 | Operative Report ---
Post Operative Report Pre & Post Diagnosis Operation Date: 06/26/25 07:00 Pre-Op Diagnosis: Right Knee Degenerative Joint Disease, obesity BMI 38 Post-Op Diagnosis: Right Knee Degenerative Joint Disease, obesity BMI 38 I identified the patient and participated in the time-out.: Yes Procedure Operation Date: 06/26/25 07:00 Actual Procedures p Right Total Knee Arthroplasty(Right), lateral release, application sae and Acticoat superficial wound VAC.- Ham Sullivan MD Surgeon Ham Sullivan MD Composition Professor Deng MALDONADO Estimated Blood Loss 5 Findings Consistent with Post-Op Diagnosis Specimens Bone cuts Drains 2 Hemovac Anesthesia Type MAC Spinal Regional Complications none Disposition Disposition: Recovery Room Indications 69-year-old female with chronic progressive osteoarthritis right knee failed conservative management. X-rays demonstrate that she has patellofemoral and lateral compartment osteoarthritis with a valgus knee. Maiz-um-slpd grade 4 osteoarthritis lateral compartment. Description of Procedure Patient taken to the operating room the size under spinal MAC regional block anesthesia. Patient was placed supine on the operating table. A pneumatic tourniquet was placed about the obese right upper thigh. The right lower extremity was prepped and draped in sterile fashion. Knee exam demonstrated moderate obesity with a valgus knee and 10 degree flexion contracture with flexion to 125 degrees. The leg was elevated exsanguinated with an Esmarch bandage and pneumatic tourniquet was raised to 350 millimeters of mercury. Skin incised sharply in longitudinal fashion. Subcutaneous flaps elevated. Incision was made through the medial retinaculum extending up in the mid third of the quadriceps tendon and down to the medial tibial tubercle. Intra-articular findings demonstrated tricompartmental osteoarthritis with a hypoplastic lateral femoral condyle bone loss on the lateral femoral condyle side of the joint on extension and flexion surface with eburnated bone. There was advanced patellofemoral osteoarthritis and tricompartmental disease. There was a chronic displaced lateral meniscus tear.. The [employer] tri[employer] (PGD)lon total knee arthroplasty system was used. To expose the knee the infrapatellar fat pad was resected. The meniscal remnants and cruciate ligaments were resected. The anterior fat pad over the femur in the area of the location of the anterior flange of the femoral component was resected. The lateral synovial bands were released. The femur was exposed. An intramedullary drill hole was made into the canal. A guide damaso was placed. Distal femoral cutting guide was adjusted to resect a 6 degree valgus cut with 10 millimeters distal femur resected. The knee was extended and a subperiosteal peel lateral release was performed around the patella. Patella width was measured and width was reproduced using a freehand cut technique and a 35 mm asymmetrical patella component. The 3 drill holes were made and the excess lateral facet was beveled off to prevent any impingement. Attention was taken back to the femur which was exposed with retractors and the femoral sizing guide was pinned in position. The drill holes were placed to match the epicondylar axis this required externally rotating the guide to match the axis with the posterior referencing aspect of the guide laterally being rotated off of the bone due to the bone loss. The femur sized for a 5 component. The +1.5 guide was used to prevent anterior notching on the femoral cortex and then the 4-in-1 cutting block was placed and then the anterior posterior and chamfer cuts are made. The tibia was then subluxed. The external tibial cutting guide was adjusted to make a perpendicular cut to the long axis of the tibia below the most deficient bone loss side. Cut was adjusted for slope. A lamina branch maker was used and the flexion extension gaps were balanced. Lateral capsular releases were required. Some of the IT band was released off the tibia as well. All posterior osteophytes removed. All meniscal remnants were resected. The tibia exposed and the trial tibial component size 5 was maximally externally rotated in line with the tibial tubercle and pinned in position. The punch and drill for the stem was used. The notch cutting device was centered appropriately and the femoral notch cut was made. The femoral trial was inserted. Trial tibial inserts were placed and size 13 gave balanced ligaments through flexion and extension. Patella tracking was assessed. The patella tracked with some lateral tilt and lift off so I had to do a lateral release which was performed extra-articular leaving the synovium intact. The geniculate vessels were preserved. The trial components were then removed and the orthomix anesthetic cocktail was injected per protocol. The knee was then copiously irrigated with pulsatile lavage saline solution. Final components were then cemented with Refobacin cement. Xperience irrigation placed over metal components prior to polyethylene insertion. Final components were size 5 right triathlon posterior stabilized femoral component with as 5 universal tibial baseplate with a 12 x 50 mm added cemented stem with a posterior stabilized size 13 mm X.3 polyethylene tibial bearing insert and a 35 x 10 mm asymmetric X.3 polyethylene patella. After the cement cured further pulsatile lavage irrigation was then performed with Xperience and 2 Hemovac drains were brought out laterally. The quadriceps tendon and medial retinaculum were closed with #2 FiberWire seoxop-rl-kxbwv sutures along the medial retinaculum medial side of the patella and distal quadriceps tendon and an additional tcvxaq-is-huklh suture at the apex of the quadriceps tendon split proximally and an additional hufknw-tg-txycc suture at the level of the tibial polyethylene in the patella tendon. a 0 running locking STRATAFIX suture was placed starting at the proximal split in the quadriceps tendon extending down to the inferior pole the patella and then below that level [id number]-yy-cdgdy #1 Vicryl sutures were utilized to repair the medial retinaculum to the patella tendon. The knee was taken through full range of motion and the repair was secure. Knee range of motion was 0 through 130 degrees. The subcutaneous tissues were closed with 2-0 Vicryl sutures. Skin was closed with surgical maria isabel. A sae and Acticoat superficial wound VAC was applied. The patient tolerated the procedure well. Deng MALDONADO was my physician permit review assistant who participated as lens assistant and was involved in all aspects of the procedure including patient positioning prepping and draping,leg positioning ,soft tissue retraction and instrument management and participated in the closing and placement of the superficial wound VAC and will participate in postoperative care of the patient. The patient tolerated the procedure well. I attest to the content of the Intraoperative Record and any orders documented therein. Any exceptions are noted below.
--- NOTE | 2025-06-26 10:43 | XRay Report ---
XR knee RT 1 or 2V routine CLINICAL HISTORY: Surgical Post Op COMPARISON: None FINDINGS: Right knee prosthesis shows no hardware complication. There is expected soft tissue gas. P ostoperative drain is present. Skin maria isabel are present. IMPRESSION: Unremarkable postoperative exam. ACT 112: Negative or not required by law. Electronically signed by: Graeme Clemente M.D. 06/26/2025 10:41 AM
--- NOTE | 2025-06-26 10:46 | Anesthesiology Progress Note ---
Date of Service June 26, 2025 Anesthesia Post Procedure Vital Signs Vital Signs: Temp Pulse Pulse Resp BP Pulse Ox O2 Del Method 06/26/25 10:35 87 15 152/81 H 94 Oxymask 06/26/25 10:25 93 H 16 132/88 95 Oxymask 06/26/25 10:15 95 H 18 152/78 H 95 Oxymask 06/26/25 10:06 36.8 C 101 H 18 135/90 94 Oxymask 06/26/25 05:43 36.7 C 65 18 135/75 97 Room Air O2 Flow Rate 06/26/25 10:35 6 06/26/25 10:25 6 06/26/25 10:15 6 06/26/25 10:06 6 06/26/25 05:43 Pain Intensity Right Knee: Pain Intensity: 0 Transfer of Care Handoff Completed per policy Notes Mental Status: alert / awake / arousable Patient Amnestic to Procedure: Yes Nausea / Vomiting: adequately controlled Pain: adequately controlled Airway Patency, RR, SpO2: stable & adequate BP & HR: stable & adequate Hydration State: stable & adequate Neuraxial Anesthesia: was administered and sensory block is resolving Anesthetic Complications: no major complications apparent and Pt Satisfied with anesthetic care
[2025-06-26] MEDS: KETOROLAC 30 MG/ML VIAL IV ONE (11:32)
[2025-06-26] MEDS: ACETAMINOPHEN 1,000 MG/100 ML VIAL IV STA (11:33)
[2025-06-26] MEDS ORDERED: MAGNESIUM HYDROXIDE SUSP 30 ML UDC PO PRN (13:34)
[2025-06-26] MEDS ORDERED: PHARMACY GLYCEMIC MGMT CONSULT PRN (13:34)
[2025-06-26] MEDS ORDERED: diphenhydrAMINE Capsule 25 MG CAP PO PRN (13:34)
[2025-06-26] MEDS ORDERED: METOCLOPRAMIDE HCL INJ 5 MG/ML 2 ML VIAL IV PRN (13:34)
[2025-06-26] MEDS ORDERED: HYDROmorphone INJ 0.5 MG/0.5 ML SYR IV PRN (13:34)
[2025-06-26] MEDS ORDERED: NON-FORMULARY MEDICATION (Magnesium Citrate 100 mg Capsule) PO PRN (13:34)
[2025-06-26] MEDS ORDERED: NALOXONE HCL 0.4 MG/1 ML VIAL/CARP IV PRN (13:34)
--- NOTE | 2025-06-26 13:55 | Consultation ---
Date of Consultation June 26, 2025 Assessment & Plan (1) S/P total knee replacement: (2) Osteoarthritis of right knee: Post op day# 0 S/P Right TKA by Dr Sullivan EBL#5ml Pain management per ortho Wound management per ortho PT/OT as appropriate DVT prophylaxis per ortho Incentive spirometry Monitor H&H for acute blood loss anemia; pre-op Hgb: 13 (3) Prediabetes: A1c: 5.9 on 12/26/24 Hold home metformin Basal bolus insulin per glycemic pharmacist. Appreciate glycemic management (4) Anxiety: Continue buspirone (5) Hyperlipidemia: Not currently on medication (6) GERD (gastroesophageal reflux disease): Not currently on medication DVT Prophylaxis SCDs Disposition per primary service Follows with Dr Schwartz for routine care Pt was seen and care coordinated with Dr Salgado. See addendum Thank you for this consultation. We will follow the patient with you during their hospital stay. You can reach a member of the [facility] Team 18/04 via [employer] Supervising Physician Co-Signing Physician Notes Attending Addendum: Case reviewed with the advanced practitioner. I have personally performed a history and physical examination on the patient. I have reviewed the advanced practitioner's documentation on the date of service referenced in note, and I agree with, and take responsibility for the plan of care. please refer to her notes for full details patient seen and examined, records reviewed by myself as well diagnoses and plan of care as per advanced practitioner's notes I spent a total of 35 minutes coordinating, documenting, and providing care for this patient, excluding time spent in the performance of separately billed services or time spent by another provider/QHP. Clif Salgado MD History of Present Illness Requesting Physician: Dr Sullivan Reason for Consultation: post op medical management Attending Physician: Ham Sullivan MD History of Present Illness Patient is 69 year old female with PMH prediabetes, dyslipidemia, anxiety, GERD, obesity seen in medical consultation s/p right TKA today by Dr Sullivan. Post op patient reports doing well. She states that starting to have some tingling sensation to RLE and feels sensation starting to return. Last BM yesterday. States had slight MONTERO but since she is drinking coffee the MONTERO has resolved and suspects was caffeine withdrawal. Denies fever/chills, diaphoresis, N/V/D/C, MONTERO, dizziness, neck pain, CP, SOB, palpitations, cough, sore throat, rhinorrhea, abdominal pain, extremity edema, rashes, urinary symptoms. Allergies Allergy/AdvReac Type Severity Reaction Status Date / Time codeine AdvReac Intermediate "[place] like Verified 06/26/25 05:33 was passing out" Home Medications Medication Instructions Recorded Confirmed Type Lactobacil.acidophilus-Bifido.animalis 1 cap PO DAILY 12/24/24 06/26/25 History 5 billion cell sprinkle capsule (Probiotic) biotin 1,000 mcg chewable tablet 1,000 mcg PO DAILY 12/24/24 06/26/25 History buspirone 5 mg tablet 5 mg PO BID 12/24/24 06/26/25 History cholecalciferol (vitamin D3) 25 25 mcg PO DAILY 12/24/24 06/26/25 History mcg (1,000 unit) capsule (Vitamin D3) cyanocobalamin (vitamin B-12) 2,500 mcg PO DAILY 12/24/24 06/26/25 History 2,500 mcg tablet metformin 500 mg tablet 1,000 mg PO QAM 12/24/24 06/26/25 History nglittysxfgu-byggoywp-crvtctf-folic 1 tab PO DAILY 12/24/24 06/26/25 History acid 400 mcg-vit K1 20 mcg tablet loratadine 10 mg tablet 10 mg PO QAM 06/13/25 06/26/25 History magnesium citrate 100 mg capsule 100 mg PO DAILY PRN . 06/13/25 06/26/25 History acetaminophen 500 mg tablet 1,000 mg (2 x 500 mg) PO Q8H #90 06/26/25 06/26/25 Rx (Tylenol Extra Strength) tabs acetaminophen 500 mg tablet 1,000 mg PO Q8H PRN Pain 06/26/25 06/26/25 History (Tylenol Extra Strength) aspirin 81 mg tablet,delayed 81 mg PO BID #60 tabs 06/26/25 06/26/25 Rx release cefadroxil 500 mg capsule 500 mg PO Q12H #28 caps 06/26/25 06/26/25 Rx celecoxib 200 mg capsule (Celebrex) 200 mg PO Q12H #60 caps 06/26/25 06/26/25 Rx oxycodone 5 mg tablet 5 mg PO Q4H PRN pain #30 tabs 06/26/25 06/26/25 Rx Patient History Medical History Bilateral primary osteoarthritis of knee GERD (gastroesophageal reflux disease) Hiatal hernia Prediabetes Taking Metformin Anxiety Hyperlipidemia Surgical History History of total left knee replacement (01/23/25) History of postoperative nausea and vomiting History of arthroscopy right knee Hx of foot surgery B/L bone spurs History of cholecystectomy History of colonoscopy History of esophagogastroduodenoscopy (EGD) History of hysterectomy History of tooth extraction History of tonsillectomy Family History Sister History of postoperative nausea and vomiting Father Diabetes Social History Smoking Status: Never smoker Second Hand Exposure: No; Do You Dip or Chew Tobacco: No; Tobacco Cessation Education Requested by Patient: No Hx Alcohol Use: No Hx Substance Use: No Preferred Language: Khmer Communication Ability: Effective Network/Telecom Engineer Required: No Beliefs That Will Affect Care: None Current Living Situation: Spouse Other Information That Helps Us Care for You: No Feels Safe at Home: Yes Safety Concerns: Feels Safe At This Time Assistive Devices: Glasses and Other Assistive Devices Comment: Upper Partial Review of Systems Review of Systems: All systems reviewed & are unremarkable except as noted in HPI & below Physical Exam Physical Exam: General: no distress, obese female Head: normocephalic, atraumatic Eyes: conjunctiva non-injected, anicteric ENT: normal inspection external ears, nose, mucous membranes moist Neck: supple, trachea midline Lungs: clear, no respiratory distress, no wheezing/rhonchi/rales CV: RRR, no murmur, no pretibial edema Abd: normal BS, soft, non-tender Ext: no calf tenderness; RLE: +Surgical dressing and CLARISSA wrap in place, +Hemovac drain, distal pulses palpable, sensation to light touch intact Neuro: A&O x 3, no focal deficits noted, normal affect Skin: warm, dry Results & Data Vital Signs (Past 12 Hours) Vital Signs Temp Pulse Pulse Resp BP Pulse Ox O2 Del Method 06/26/25 13:34 36.3 C L 80 18 147/85 H 96 Room Air 06/26/25 12:35 75 12 149/77 H 96 Nasal Cannula 06/26/25 12:05 80 15 154/79 H 95 Nasal Cannula 06/26/25 11:50 78 14 151/81 H 96 Nasal Cannula 06/26/25 11:35 80 16 159/59 H 97 Nasal Cannula 06/26/25 11:20 82 16 139/93 95 Nasal Cannula 06/26/25 11:05 36.4 C L 80 16 155/79 H 95 Nasal Cannula 06/26/25 10:55 87 16 168/84 H 94 Room Air 06/26/25 10:45 90 16 152/81 H 94 Room Air 06/26/25 10:35 87 15 152/81 H 94 Oxymask 06/26/25 10:25 93 H 16 132/88 95 Oxymask 06/26/25 10:15 95 H 18 152/78 H 95 Oxymask 06/26/25 10:06 36.8 C 101 H 18 135/90 94 Oxymask 06/26/25 05:43 36.7 C 65 18 135/75 97 Room Air O2 Flow Rate 06/26/25 13:34 06/26/25 12:35 2 06/26/25 12:05 2 06/26/25 11:50 2 06/26/25 11:35 2 06/26/25 11:20 2 06/26/25 11:05 4 06/26/25 10:55 06/26/25 10:45 06/26/25 10:35 6 06/26/25 10:25 6 06/26/25 10:15 6 06/26/25 10:06 6 06/26/25 05:43 (2) Osteoarthritis of right knee Osteoarthritis type: primary Qualified Code(s): M17.11 - Unilateral primary osteoarthritis, right knee
[2025-06-26] MEDS ORDERED: CARBOHYDRATES FOR HYPOGLYCEMIA PO PRN (14:15)
[2025-06-26] MEDS ORDERED: GLUCOSE 10 TAB/TUBE PO PRN (14:15)
[2025-06-26] MEDS ORDERED: DEXTROSE 50% 50 ML SYRINGE IV PRN (14:15)
[2025-06-26] MEDS ORDERED: GLUCOSE 40% GEL 15 GM TUBE PO PRN (14:15)
[2025-06-26] MEDS ORDERED: GLUCAGON FOR INJ 1 MG VIAL SQ PRN (14:15)
[2025-06-26] MEDS: ACETAMINOPHEN 1000 MG/100 ML IV IV ONE (14:18)
[2025-06-26] MEDS: KETOROLAC 30 MG/ML VIAL ONE (14:18)
--- NOTE | 2025-06-26 14:24 | Pharmacy Report ---
Pharmacy Glycemic Short Note 2 - Date of Service June 26, 2025 - Glycemic Short BSG Results (Last 24 hours): 06/26/25 10:40 POC Glucose 176 H OUTPATIENT ANTIDIABETIC REGIMEN: * Metformin 1000 mg PO AM HbA1c: * 5.9% (12/26/24 - don't believe it is necessary to recheck an A1c this year in a stable patient) ASSESSMENT: * 69 yo F admitted on 06/26/25 postoperative following a right total knee arthroplasty with Dr. Sullivan. Pharmacy has been consulted to assist with inpatient glycemic management. Patient is a Type 2 diabetic as an outpatient. Please refer to outpatient regimen and most recent HbA1c above. * No preop BSG obtained. Postop BSG was 176 mg/dL. Patient received 10 mg of IV dexamethasone preop and appears that another 4 mg IV dose was overriden from the omnicell. Will move forward assuming patient received a total of 14 mg of IV dexamethasone. Another 10 mg IV dexamethasone dose is ordered for tomorrow morning x 1 dose. * T2DM diet ordered, will follow to see if patient tolerates. * Patient was recently here in December 2024 for a L TKA and did NOT receive any steroids. BSGs were well controlled, actually below goal range, during that admission with only bolus insulin. Given A1c, I am hesitant to be aggressive with insulin dosing. Will start basal at 0.1 units/kg for one dose now and one dose tomorrow morning while on steroids and see how she does. Bolus insulin being started based on weight/stress of 2.5. PLAN FOR INPATIENT GLYCEMIC CONTROL: * Hold outpatient oral diabetes medications * Basal insulin * Lantus 12 units SC x 1 now * Lantus 12 units SC x 1 tomorrow AM * Bolus insulin * NovoLog per scale ACHS or Q6hrs while NPO * Goal Range: Low 110 mg/dL - High 140 mg/dL * Correction Factor: 25 mg/dL/unit * Nutritional / Prandial insulin per carb ratio of 1 unit per 8 grams CHO consumed
[2025-06-26] MEDS: SODIUM CHLORIDE 0.9% 1,000 ML IV SCH (14:31)
[2025-06-26] MEDS: LANTUS PER UNIT CHARGE SC SCH (15:58)
[2025-06-26] MEDS: TRANEXAMIC ACID / 0.7% NACL 1,000 MG/100 ML BAG IV SCH (16:48)
[2025-06-26] MEDS: INSULIN ASPART PER UNIT CHARGE SC SCH (17:33)
[2025-06-26] MEDS: busPIRone 5 MG TAB PO SCH (20:46)
[2025-06-26] MEDS: DOCUSATE SODIUM 100 MG CAP PO SCH (20:46)
[2025-06-26] MEDS: SENNA 8.6 MG TAB PO SCH (20:46)
[2025-06-27] MEDS: ALUMINUM/MAGNESIUM SUSP 30 ML UDC PO PRN (00:56)
[2025-06-27 06:22] LABS: Hematocrit (blood only) 31.2 % (37.0-47.0); Hemoglobin 10.6 g/dl (12.0-16.0); Mean Corpuscular Hemoglobin 29.9 pg (25.0-34.0); Mean Corpuscular Volume 88.1 fL (80.0-100.0); Platelet Count 280 K/uL (130-400); RDW Standard Deviation 45.3 fL (36.4-46.3); Red Blood Count 3.54 M/uL (4.20-5.40); White Blood Count 13.23 K/ul (4.8-10.8)
[2025-06-27 06:49] LABS: Anion Gap 6.0 (3-11); Blood Urea Nitrogen 17.0 mg/dl (6-23); Calcium 8.8 mg/dl (8.6-10.3); Carbon Dioxide 26.0 mmol/L (21-32); Chloride 110.0 mmol/L (98-107); Creatinine Clr Calc Pharmacy 106.6 ml/min; Glucose 94.0 mg/dl (70-99(Fasting)); Potassium 4.0 mmol/L (3.5-5.1); Sodium 142.0 mmol/L (136-145)
--- NOTE | 2025-06-27 07:24 | Orthopedic Progress Note ---
Date of Service June 27, 2025 Assessment & Plan (1) Osteoarthritis of right knee: Plan: Postop day 1 right knee replacement. Patient should be stable for discharge. She has some moderate drainage from the Hemovac and she wants to do home health so if she has home health service that can pull the Hemovac drain we can leave an end of the day if she does not we can have it removed prior to discharge today. Follow-up in 2 weeks for staple removal. [facility] protocol for wound care. End-stage right knee osteoarthritis. Plan for Proctor triathlon right total knee replacement with cemented stem extension on tibia similar to opposite knee. Admission and Anticipated Discharge Date Admission Date: June 26, 2025 Subjective No complaints. Minimal pain Review of Systems Review of Systems: No chest pain shortness of breath Physical Exam Musculoskeletal: Dressing dry and intact independent straight leg raise distal circulation sensorimotor exam intact. Results & Data Vital Signs (Past 12 Hours) Vital Signs Temp Pulse Resp BP Pulse Ox O2 Del Method 06/27/25 03:15 36.6 C 61 18 133/76 96 Room Air 06/26/25 23:16 36.6 C 73 18 135/77 95 Room Air 06/26/25 20:25 36.6 C 71 18 132/83 96 Room Air Diagnostic Findings Satisfactory aligned total knee replacement (1) Osteoarthritis of right knee Osteoarthritis type: primary Qualified Code(s): M17.11 - Unilateral primary osteoarthritis, right knee
[2025-06-27 07:28] VITALS: RESP 16
[2025-06-27] MEDS ORDERED: NON-FORMULARY MEDICATION (Biotin 1,000 mcg Tablet,Chewable) PO SCH (09:00)
[2025-06-27] MEDS: ASPIRIN 81 MG ECTAB PO SCH (09:15)
[2025-06-27] MEDS: dexAMETHasone 10 MG in SYRINGE 0 ML IV SCH (09:15)
[2025-06-27] MEDS: MULTIVITAMIN TAB PO SCH (09:16)
[2025-06-27] MEDS: LORATADINE 10 MG TAB PO SCH (09:17)
[2025-06-27] MEDS: CHOLECALCIFEROL 25 MCG (1000 UNITS) TAB PO SCH (09:17)
[2025-06-27] MEDS: CYANOCOBALAMIN (B-12) 2,500 MCG TABLET PO SCH (09:17)
[2025-06-27] MEDS: ADVANCED PROBIOTIC 625 MG CAPSULE PO SCH (09:17)
[2025-06-27] MEDS: CEROVITE ADV FORMULA TAB PO SCH (09:18)
[2025-06-27] MEDS: KETOROLAC TROMETHAMINE 15 MG/ML VIAL IV PRN (09:34)
--- NOTE | 2025-06-27 10:18 | Hospitalist Progress Note ---
Date of Service June 27, 2025 Assessment & Plan (1) S/P total knee replacement: (2) Osteoarthritis of right knee: Plan: Post op day# 1 S/P Right TKA by Dr Nate HARPER#5ml Pain management per ortho Wound management per ortho PT/OT as appropriate DVT prophylaxis per ortho Incentive spirometry Monitor H&H for acute blood loss anemia; pre-op Hgb: 13, post op Hb 10.6, likely acute blood loss anemia iso perioperative blood loss and dilutional component. Pt denies dizziness or chest pain, no indication for blood transfusion. (3) Prediabetes: Plan: A1c: 5.9 on 12/26/24 Hold home metformin Basal bolus insulin per glycemic pharmacist. Appreciate glycemic management (4) Anxiety: Plan: Continue buspirone (5) Hyperlipidemia: Plan: Not currently on medication (6) GERD (gastroesophageal reflux disease): Plan: Not currently on medication DVT Prophylaxis SCDs Disposition per primary service Follows with Dr Schwartz for routine care Thank you for this consultation. We will follow the patient with you during their hospital stay. You can reach a member of the [facility]ist Team 18/04 via [employer] Admission and Anticipated Discharge Date Admission Date: June 26, 2025 Subjective Patient was seen and examined at bedside. Patient was sitting up in bed, on room air, NAD, resting comfortably. Patient reports operative site pain under control, denies lightheadedness when sitting up or standing up, denies chest pain or sore throat. Physical Exam Physical Exam: General: no distress, obese female Head: normocephalic, atraumatic Eyes: conjunctiva non-injected, anicteric ENT: normal inspection external ears, nose, mucous membranes moist Neck: supple, trachea midline Lungs: clear, no respiratory distress, no wheezing/rhonchi/rales CV: RRR, no murmur, no pretibial edema Abd: normal BS, soft, non-tender Ext: no calf tenderness; RLE: +Surgical dressing and CLARISSA wrap in place, +Hemovac drain, distal pulses palpable, sensation to light touch intact Neuro: A&O x 3, no focal deficits noted, normal affect Skin: warm, dry Results & Data Results & Data Vital Signs (Past 12 Hours) Vital Signs Temp Pulse Resp BP Pulse Ox O2 Del Method 06/27/25 07:28 36.6 C 60 16 121/79 97 Room Air 06/27/25 03:15 36.6 C 61 18 133/76 96 Room Air 06/26/25 23:16 36.6 C 73 18 135/77 95 Room Air (2) Osteoarthritis of right knee Osteoarthritis type: primary Qualified Code(s): M17.11 - Unilateral primary osteoarthritis, right knee
[2025-06-27 10:54] VITALS: BP 136/84; PULSE 55; TEMP 97.7; O2SAT 55
== END 2025-06-27 13:06 | disposition home health service (06) ==
LOC: ASU 05:22 → 3E 05:22